=== PATIENT | male | born 1975 | race Caucasian/White ===

== ENCOUNTER 2020-07-19 15:56 | Emergency (ER) | payer BC ==
[2020-07-19 16:13] VITALS: BP 115/83; PULSE 105; TEMP 98.6; BMI 47.0
--- OUTSIDE RECORDS SUMMARY | 2020-07-19 16:26 | XMS ---
:1975 Author Organization [facility] Support Name Relationship Address Phone UE Unavailable Unavailable Unavailable Re-disclosure Warning The records that you are about to access may contain information from federally- assisted alcohol or drug abuse programs. If such information is present, then the following federally mandated warning applies: This information has been disclosed to you from records protected by federal confidentiality rules (42 CFR part 2). The federal rules prohibit you from making any further disclosure of this information unless further disclosure is expressly permitted by the written consent of the person to whom it pertains or as otherwise permitted by 42 CFR part 2. A general authorization for the release of medical or other information is NOT sufficient for this purpose. The Federal rules restrict any use of the information to criminally investigate or prosecute any alcohol or drug abuse patient.The records that you are about to access may contain highly sensitive health information, the redisclosure of which is protected by Article 27-F of the [facility] Public Health law. If you continue you may haveaccess to information: Regarding HIV / AIDS; Provided by facilities licensed or operated by the [facility] Office of Mental Health; or Provided by the [facility] Office for People With Developmental Disabilities. If such information is present, then the following [facility] mandated warning applies: This information has been disclosed to you from confidential records which are protected by state law. State law prohibits you from making any further disclosure of this information without the specific written consent of the person to whom it pertains, or as otherwise permitted by law. Any unauthorized further disclosure in violation of state law may result in a fine or alf sentence or both. A general authorization for the release of medical or other information is NOT sufficient authorization for further disclosure. Insurance Providers Payer name Policy type / Policy ID Covered Covered republican's Policy Plan Coverage type republican ID relationship to Rosales Information rosales PPO [id number] SP [id number] Results ID Date Data Source [id number] 02/11/2020 11:48:00 AM EDT [facility] Name Value Range Interpretation Code Description Data Anh rce(s) Supporting Document(s ) SARS-COV-2 [facility] QL ACE+PROBE This lab was ordered by [facility] and reported by [facility]. Procedure
--- NOTE | 2020-07-19 17:04 | PDOC ---
History of Present Illness - General Chief Complaint: Chest Pain Stated Complaint: CHEST PAIN Time Seen by Provider: 07/19/20 16:52 History Source: Patient Exam Limitations: No Limitations Past History - Travel History Traveled outside of the country in the last 30 days: No Close contact w/someone who was outside of country & ill: No - Medical History Allergies/Adverse Reactions: Allergies Allergy/AdvReac Type Severity Reaction Status Date / Time No Known Allergies Allergy Verified 07/19/20 16:09 - Psycho-Social/Smoking History Smoking History: Never smoked Have you smoked in the past 12 months: No - Substance Abuse Hx (Audit-C & DAST Scrn) How often the patient has a drink containing alcohol: Never Score: In Men: 4 or > Positive; In Women: 3 or > Positive: 0 Screen Result (Pos requires Nsg. Audit-10AR): Negative In the last yr the pt used illegal drug/Rx for NonMed reason: No Score: Yes response is considered Positive: 0 Screen Result (Positive result requires Nsg. DAST-10): Negative Review of Systems - Review of Systems Able to Perform ROS?: Yes Comments:: 07/19/20 18:07 CONSTITUTIONAL: Absent: fever, chills, diaphoresis, generalized weakness, malaise, loss of appetite HEENT: Absent: rhinorrhea, nasal congestion, throat pain, throat swelling, difficulty swallowing, mouth swelling, ear pain, eye pain, visual Changes CARDIOVASCULAR: Present: chest pain Absent: loss of consciousness, palpitations, irregular heart rate, peripheral edema RESPIRATORY: Present: sob Absent: cough, shortness of breath, dyspnea with exertion, orthopnea, wheezing, stridor, hemoptysis GASTROINTESTINAL: Absent: abdominal pain, abdominal distension, nausea, vomiting, diarrhea, constipation, melena, hematochezia GENITOURINARY: Absent: dysuria, frequency, urgency, hesitancy, hematuria, flank pain, genital pain MUSCULOSKELETAL: Absent: myalgia, arthralgia, joint swelling SKIN: Absent: rash, itching, pallor HEMATOLOGIC/IMMUNOLOGIC: Absent: easy bleeding, easy bruising, lymphadenopathy, frequent infections ENDOCRINE: Absent: unexplained weight gain, unexplained weight loss, heat intolerance, cold intolerance NEUROLOGIC: Absent: headache, focal weakness or paresthesias, dizziness, unsteady gait, seizure, mental status changes, bladder or bowel incontinence PSYCHIATRIC: Absent: anxiety, depression, suicidal or homicidal ideation, hallucinations. Is the patient limited Luxembourger proficient: No *Physical Exam - Vital Signs Last Vital Signs Temp Pulse Resp BP Pulse Ox 98.6 F 105 H 22 H 115/83 100 07/19/20 16:09 07/19/20 16:09 07/19/20 16:09 07/19/20 16:09 07/19/20 16:09 - Physical Exam 07/19/20 18:08 GENERAL: Well developed, well nourished. Awake and alert. No acute distress. HEENT: Normocephalic, atraumatic. PERRLA, EOMI. No conjunctival pallor. Sclera are non- icteric. Moist mucous membranes. NECK: Supple. Full ROM. No JVD. No lymphadenopathy. CARDIOVASCULAR: Regular rate and rhythm. No murmurs, rubs, or gallops. Distal pulses are 2+ and symmetric. PULMONARY: No evidence of respiratory distress. ABDOMINAL: Soft. Non-tender. Non-distended. No rebound or guarding. No organomegaly. Normoactive bowel sounds. MUSCULOSKELETAL Normal range of motion at all joints. No bony deformities or tenderness. No CVA tenderness. EXTREMITIES: No cyanosis. No clubbing. No edema. No calf tenderness. SKIN: Warm and dry. Normal capillary refill. No rashes. No jaundice. NEUROLOGICAL: Alert, awake, appropriate. Cranial nerves 2-12 intact. No deficits to light touch and temperature in face, upper extremities and lower extremities. No motor deficits in the in face, upper extremities and lower extremities. Normoreflexic in the upper and lower extremities. Normal speech. Toes are down-going bilaterally. Gait is normal without ataxia. PSYCHIATRIC: Cooperative. Good eye contact. Appropriate mood and affect. Medical Decision Making - Medical Decision Making 07/19/20 17:25 Patient is a 45-year-old male past medical history of depression, suicide attempt, hypertension, presents to the ER today with difficulty breathing and chest pain. He states he had COVID back in December and since then has been having some residual symptoms. He said the chest pain was worse so he went to urgent care today for evaluation. He was told to come to the ER for admission and serial troponins. A/P: Chest pain Patient reports difficulty breathing and increasing chest pain with movement., Patient does have history of COVID Per lab work and history done in urgent care they told him his heart score was a 4. Patient did not understand that he needed to stay for admission. Patient becomes very anxious and panicked when I tell him he should stay. He states that he needs to leave to address his house. Patient states that needs to go home and close his windows and secured his house and that he cannot stay at this time. He is free from distracting injury and sober. He states he will come back in about half an hour after he secures his house. He understands that he is leaving AGAINST MEDICAL ADVICE and could have worsening chest pain, difficulty breathing or worsening events related to his h eart. Patient signed the AMA forms. Discharge - Discharge Information Problems reviewed: Yes Clinical Impression/Diagnosis: SOB (shortness of breath) Disposition: AGAINST MEDICAL ADVICE - Follow up/Referral - Patient Discharge Instructions - Post Discharge Activity
--- NOTE | 2020-07-20 14:04 | EKG ---
Test Reason : Blood Pressure : / mmHG Vent. Rate : 099 BPM Atrial Rate : 099 BPM P-R Int : 150 ms QRS Dur : 090 ms QT Int : 338 ms P-R-T Axes : 019 009 031 degrees QTc Int : 433 ms NORMAL SINUS RHYTHM NORMAL ECG NO PREVIOUS ECGS AVAILABLE Confirmed by PHAM MELENDEZ MD ([id number]) on 07/20/2020 2:04:28 PM Referred By: Confirmed By:PHAM MELENDEZ MD
== END 2020-07-19 18:00 | disposition left against medical advice (07) ==
LOC: JER 15:56
DX: R06.02 Shortness of breath (principal)
CPT/HCPCS: 93005; 93010; 99285-25

== ENCOUNTER 2020-07-19 19:01 | Inpatient (IN) | payer BC ==
--- OUTSIDE RECORDS SUMMARY | 2020-07-19 19:21 | XMS ---
:1975 Author Organization [facility] Support Name Relationship Address Phone UE Unavailable [...] is protected by Article 27-F of the [facility] Public Health law. If you continue you may haveaccess to information: Regarding HIV / AIDS; Provided by facilities licensed or operated by the [facility] Office of Mental Health; or Provided by the [facility] Office for People With Developmental Disabilities. If such information is present, then the following [facility] mandated warning applies: This information has been [...] law may result in a fine or senior living sentence or both. A general authorization for the release of medical or other information is NOT sufficient authorization for further disclosure. Insurance Providers Payer name Policy type / Policy ID Covered Covered libertarian's Policy Plan Coverage type libertarian ID relationship to Rosales Information rosales PPO [id number] SP [id number] Results ID Date Data Source [id number] 02/11/2020 11:48:00 AM EDT [facility] Name Value Range Interpretation Code Description Data Anh rce(s) Supporting Document(s ) SARS-COV-2 [facility] QL ACE+PROBE This lab was ordered by [facility] and reported by [facility]. Procedure
--- NOTE | 2020-07-19 19:25 | PDOC ---
History of Present Illness - General Stated Complaint: CHEST PAINS History Source: Patient Exam Limitations: No Limitations Past History - Medical History Allergies/Adverse Reactions: Allergies Allergy/AdvReac Type Severity Reaction Status Date / Time No Known Allergies Allergy Verified 07/19/20 19:17 Home Medications: Ambulatory Orders Quetiapine Fumarate [Seroquel -] 50 mg PO BID 07/20/20 Venlafaxine HCl [Effexor -] 100 mg PO BID 07/20/20 Vortioxetine Hydrobromide [Trintellix] 20 mg PO DAILY 07/20/20 COPD: No - Psycho-Social/Smoking History Smoking History: Current every day smoker Have you smoked in the past 12 months: No Number of Cigarettes Smoked Daily: 20 Information on smoking cessation initiated: Yes - Substance Abuse Hx (Audit-C & DAST Scrn) How often the patient has a drink containing alcohol: Never Score: In Men: 4 or > Positive; In Women: 3 or > Positive: 0 Screen Result (Pos requires Nsg. Audit-10AR): Negative In the last yr the pt used illegal drug/Rx for NonMed reason: No Score: Yes response is considered Positive: 0 Screen Result (Positive result requires Nsg. DAST-10): Negative Review of Systems - Review of Systems Able to Perform ROS?: Yes Comments:: 07/19/20 21:29 CONSTITUTIONAL: Absent: fever, chills, diaphoresis, generalized weakness, malaise, loss of appetite HEENT: Absent: rhinorrhea, nasal congestion, throat pain, throat swelling, difficulty swallowing, mouth swelling, ear pain, eye pain, visual Changes CARDIOVASCULAR: Present: Chest pain Absent: loss of consciousness, palpitations, irregular heart rate, peripheral edema RESPIRATORY: Present: Shortness of breath Absent: cough, dyspnea with exertion, orthopnea, wheezing, stridor, hemoptysis GASTROINTESTINAL: Absent: abdominal pain, abdominal distension, nausea, vomiting, diarrhea, constipation, melena, hematochezia GENITOURINARY: Absent: dysuria, frequency, urgency, hesitancy, hematuria, flank pain, genital pain MUSCULOSKELETAL: Absent: myalgia, arthralgia, joint swelling SKIN: Absent: rash, itching, pallor HEMATOLOGIC/IMMUNOLOGIC: Absent: easy bleeding, easy bruising, lymphadenopathy, frequent infections ENDOCRINE: Absent: unexplained weight gain, unexplained weight loss, heat intolerance, cold intolerance NEUROLOGIC: Absent: headache, focal weakness or paresthesias, dizziness, unsteady gait, seizure, mental status changes, bladder or bowel incontinence PSYCHIATRIC: Absent: anxiety, depression, suicidal or homicidal ideation, hallucinations. Is the patient limited Greek proficient: No *Physical Exam - Vital Signs Last Vital Signs Temp Pulse Resp BP Pulse Ox 98.4 F 110 H 24 H 119/67 94 L 07/19/20 19:15 07/19/20 19:15 07/19/20 19:15 07/19/20 19:15 07/19/20 19:15 - Physical Exam 07/19/20 21:52 GENERAL: Well developed,Morbidly obese. Awake and alert. No acute distress. HEENT: Normocephalic, atraumatic. PERRLA, EOMI. No conjunctival pallor. Sclera are non- icteric. Moist mucous membranes. Oropharynx is clear. NECK: Supple. Full ROM. No JVD. Carotid pulses 2+ and symmetric, without bruits. No thyromegaly. No lymphadenopathy. CARDIOVASCULAR: Regular rate and rhythm. No murmurs, rubs, or gallops. Distal pulses are 2+ and symmetric. PULMONARY: Short of breath conversationally. Lungs With diminished sounds to the bases.. No wheezing, rales or rhonchi. ABDOMINAL: Soft. Non-tender. Non-distended. No rebound or guarding. No organomegaly. Normoactive bowel sounds. MUSCULOSKELETAL Normal range of motion at all joints. No bony deformities or tenderness. No CVA tenderness. EXTREMITIES: No cyanosis. No clubbing. No edema. No calf tenderness. SKIN: Warm and dry. Normal capillary refill. No rashes. No jaundice. NEUROLOGICAL: Alert, awake, appropriate. Cranial nerves 2-12 intact. No deficits to light touch and temperature in face, upper extremities and lower extremities. No motor deficits in the in face, upper extremities and lower extremities. Normoreflexic in the upper and lower extremities. Normal speech. Toes are down-going bilaterally. Gait is normal without ataxia. PSYCHIATRIC: Cooperative. Good eye contact. Appropriate mood and affect. Heart Score/ECG Review - History History: Moderately suspicious - Electrocardiogram EKG: Normal - Age Age: 45-65 - Risk Factors Risk Factors Heart Score: Yes Smoking History, Yes Hx Obesity Based on the list above the patient has:: 1-2 risk factors - Troponin Troponin: </= normal limit - Score Heart Score - Total: 3 ED Treatment Course - LABORATORY CBC & Chemistry Diagram: 07/19/20 20:22 07/19/20 20:22 Medical Decision Making - Medical Decision Making 07/19/20 21:21 Patient is a 45-year-old male past medical history of depression, suicide attempt (2012), hypertension, presents to the ER today with difficulty breathing and chest pain for the past three days. He states he had COVID back in December and since then has been having some residual symptoms. He notes that when he walks short distances he gets short of breath. His chest pain is made worse with deep breaths and movement. He said the chest pain was worse so he went to urgent care today for evaluation. He was told to come to the ER for admission and serial troponins. A/P: Chest pain On exam lungs sounds are diminished at the bases. Course lung sounds overall Minimal edema to the b/l ankles Heart RRR S1S2 present (-)m/r/g Pt is very anxious; visteral given Labs including trop, d-dimer, bnp ordered, EKG, CXR Tylenol for pain DDX: ACS, PE, new onset CHF, PNA, COVID Will re-evaluate 07/19/20 21:52 EKG: rate 104 BPM, sinus tach. Normal intervals and axis. No acute ST-T wave changes. Pending CT results Sign out given to Dr. Fernandez. Discharge - Discharge Information Problems reviewed: Yes Clinical Impression/Diagnosis: SOB (shortness of breath) Chest pain Qualifiers: Chest pain type: unspecified Qualified Code(s): R07.9 - Chest pain, unspecified - Follow up/Referral - Patient Discharge Instructions - Post Discharge Activity
[2020-07-19] MEDS ORDERED: ACETAMINOPHEN 1000 MG/100 ML VIAL (NON FORMULARY) IVPB ONE (19:58)
[2020-07-19] MEDS ORDERED: SODIUM CHLORIDE 1,000 ML IV STA (19:58)
[2020-07-19] MEDS ORDERED: hydrOXYzine PAMOATE 50 MG CAPSULE (FP) PO ONE (20:14)
[2020-07-19 20:57] LABS: BASO % 0.8 % (0-2.0); EOS % 3.2 % (0-4.5); HEMATOCRIT 47.5 % (35.4-49); HEMOGLOBIN 15.6 GM/dL (11.7-16.9); LYMPH % 21.3 % (8-40); MCHC 32.8 g/dl (32.0-35.9); MEAN CELL VOLUME 88.2 fl (80-96); MEAN PLT VOLUME 8.4 fl (7.5-11.1); MONO % 10.2 % (3.8-10.2); NEUT % 64.5 % (42.8-82.8); PLATELET COUNT 271 K/MM3 (134-434); RBC 5.38 M/mm3 (4.00-5.60); RDW 14.6 % (11.9-15.9)
[2020-07-19 21:06] LABS: PROTHROMBIN TIME (PATIENT) 11.8 SEC (9.7-13.0)
[2020-07-19] MEDS ORDERED: hydrOXYzine PAMOATE 50 MG CAPSULE (FP) ONE (21:08)
[2020-07-19] MEDS ORDERED: ACETAMINOPHEN INJECTION 100 ML IVPB ONE (21:08)
[2020-07-19 21:20] LABS: ALBUMIN 3.9 g/dl (3.4-5.0); ALK PHOS 89 U/L (45-117); ANION GAP 6 MMOL/L (8-16); BILIRUBIN,TOTAL 0.3 mg/dL (0.2-1); BLOOD UREA NITROGEN 24.9 mg/dL (7-18); CALCIUM 9.6 mg/dL (8.5-10.1); CHLORIDE 107 mmol/L (98-107); CO2 28 mmol/L (21-32); CREATININE 0.7 mg/dL (0.55-1.3); GLUCOSE,RANDOM 103 mg/dL (74-106); POTASSIUM 4.5 mmol/L (3.5-5.1); SGOT/AST 21 U/L (15-37); SGPT/ALT 35 U/L (13-61); SODIUM 140 mmol/L (136-145); TOT PROT 7.6 g/dl (6.4-8.2)
--- NOTE | 2020-07-19 22:09 | PDOC ---
*Physical Exam - Vital Signs Last Vital Signs Temp Pulse Resp BP Pulse Ox 98.4 F 110 H 24 H 119/67 94 L 07/19/20 19:15 07/19/20 19:15 07/19/20 19:15 07/19/20 19:15 07/19/20 19:15 ED Treatment Course - LABORATORY CBC & Chemistry Diagram: 07/19/20 20:22 07/19/20 20:22 - ADDITIONAL ORDERS Additional order review: Laboratory Results 07/19/20 07/19/20 07/19/20 20:22 20:22 20:22 PT with INR INR D-Dimer 296 Sodium 140 Potassium 4.5 Chloride 107 Carbon Dioxide 28 Anion Gap 6 L BUN 24.9 H Creatinine 0.7 Est GFR (CKD-EPI)AfAm 132.09 Est GFR (CKD-EPI)NonAf 113.97 Random Glucose 103 Calcium 9.6 Total Bilirubin 0.3 AST 21 ALT 35 Alkaline Phosphatase 89 Creatine Kinase 114 Troponin I < 0.02 B-Natriuretic Peptide 10.2 Total Protein 7.6 Albumin 3.9 07/19/20 20:22 PT with INR 11.80 INR 1.00 D-Dimer Sodium Potassium Chloride Carbon Dioxide Anion Gap BUN Creatinine Est GFR (CKD-EPI)AfAm Est GFR (CKD-EPI)NonAf Random Glucose Calcium Total Bilirubin AST ALT Alkaline Phosphatase Creatine Kinase Troponin I B-Natriuretic Peptide Total Protein Albumin 07/19/20 20:22 RBC 5.38 MCV 88.2 MCHC 32.8 RDW 14.6 MPV 8.4 Neutrophils % 64.5 Lymphocytes % 21.3 Monocytes % 10.2 Eosinophils % 3.2 Basophils % 0.8 - RADIOLOGY Radiograph Interpretation: Nixon Corbin MD wrote on Jul 20, 2020 at 02:50 AM: Referring Physician: RD MADDOX Patient Name: JARRELL MELENDREZ THIS IS A PRELIMINARY REPORT DATE OF SERVICE: 2020-07-20 00:31:49 IMAGES: 11 EXAM: CT ANGIOGRAM CHEST WITH CONTRAST AND 3D ANGIOGRAPHIC RECONSTRUCTIONS HISTORY: 45-year-old male tachypnea assess for pulmonary embolism and assess for pneumonia COMPARISON: None. TECHNIQUE: Following 150 mL IV contrast administration thin axial images were obtained through the chest for pulmonary artery evaluation by pulmonary embolism protocol with images transmitted to a remote workstation for 3-D post-processing included coronal and sagittal reformatted 3- D MIP images which were permanently stored in the patient medical record PACS. FINDINGS: Right middle lobe nonspecific 7 mm mass axial image 44 may be benign or malignant. No large central pulmonary artery embolism. Breathing motion artifact limits this exam. Evaluation of the segmental and subsegmental branches are limited by artifacts. No aortic aneurysm or dissection. Heart size within normal limits. Mild basilar atelectasis. No pleural effusion. No pneumothorax. Subcentimeter mediastinal and hilar lymph nodes. Mild hepatomegaly and steatosis with a nodular liver contour. Mild reflux of contrast into the hepatic veins. Mild gastroesophageal reflux in the lower esophagus. Diverticulosis. Mild degenerative disc disease. IMPRESSION: Right middle lobe nonspecific 7 mm mass may be benign or malignant. If clinically indicated follow-up outpatient CT chest may be needed. Fleischner Society guidelines for follow-up and management of pulmonary nodules: Nodule size = 6-8 mm. In a low-risk patient, initial follow-up CT at 6-12 months then at 18-24 months if no change. In a high-risk patient, initial follow-up CT at 3-6 months then at 9-12 months and 24 months if no change. Low risk patients include individuals with minimal or absent history of smoking and other known risk factors. High risk patients include individuals with a history of smoking or other known risk factors. No large central pulmonary artery embolism. Mild basilar atelectasis. Subcentimeter mediastinal and hilar lymph nodes. Mild hepatomegaly and steatosis with a nodular liver contour. Mild reflux of contrast into the hepatic veins. Mild gastroesophageal reflux in the lower esophagus. Diverticulosis. - Medications Given in the ED: ED Medications Discontinued Medications Generic Name Dose Route Start Last Admin Trade Name Freq PRN Reason Stop Dose Admin Acetaminophen 1,000 mg 07/19/20 19:58 07/19/20 21:14 Ofirmev Injection - IVPB 07/19/20 19:59 1,000 mg ONCE ONE Administration Hydroxyzine Pamoate 50 mg 07/19/20 20:14 07/19/20 21:14 Vistaril - PO 07/19/20 20:15 50 mg ONCE ONE Administration Medical Decision Making - Medical Decision Making 07/19/20 22:08 Signed out to me by Tammy Palmer. Has had chest pain with tachypnea last few days, went to urgent care, referred to [facility] ED. Formerly covid-19+. Today AMA from ED to close a window in his house, now returned for further cardiac evaluation. Labs unremarkable, tachycardic but D-dimer negative. ECG sinus tachcyardia with HR 104, QTc 92, no CINDI/D or TWI. IVF withheld, possible overload vs covid-19. Plans: [] CT chest non-con [] tele/obs admit 07/20/20 01:48 Patient reports a few days of SOB to the point of being unable to walk far. Also says he has been depressed last few months due to his leaving him, seeing psychiatrist, cutting wrists, severe weight gain. Appears grossly out of breath when speaking, appears much sicker than VS suggest. Getting CTA for evaluation of PE despite low D-dimer out of concern for SOB. 07/20/20 02:58 CTA read no central PE, but limited by motion artifact. 7mm nodule RML. ER read appears like possible covid-19, started on ABx. Admitting to tele for suspected covid-19 and chest pain with hypoxia. 07/20/20 03:54 Discussed case with admitting team, good for admit to TELE under Dr. Pena. Discharge - Discharge Information Problems reviewed: Yes Clinical Impression/Diagnosis: SOB (shortness of breath) Chest pain Qualifiers: Chest pain type: unspecified Qualified Code(s): R07.9 - Chest pain, unspecified - Admission Yes - Follow up/Referral - Patient Discharge Instructions - Post Discharge Activity
--- NOTE | 2020-07-20 01:49 | PDOC ---
Attending Attestation - Resident Resident Name: Andriy Durand - ED Attending Attestation I have performed the following: I have examined & evaluated the patient, The case was reviewed & discussed with the resident, I agree w/resident's findings & plan, Exceptions are as noted - HPI HPI: 07/20/20 01:46 45 yo male p/w shortness of breath head ncat neck supple lungs no wheezing cvs [id number] abdomen no rebound skin warm and dry extremities mild swelling left ankle> right ankle neuro axox3,ambulatory - Physicial Exam PE: 07/20/20 18:03 head ncat neck supple lungs no wheezing cvs [id number] abdomen no rebound skin warm and dry extremities mild swelling left ankle> right ankle neuro axox3,ambulatory 07/20/20 18:03 - Medical Decision Making 07/20/20 01:49 cta chest/labs pending 07/20/20 18:03 Discharge - Discharge Information Problems reviewed: Yes Clinical Impression/Diagnosis: SOB (shortness of breath) Chest pain Qualifiers: Chest pain type: unspecified Qualified Code(s): R07.9 - Chest pain, unspecified - Follow up/Referral - Patient Discharge Instructions - Post Discharge Activity
[2020-07-20] MEDS ORDERED: AZITHROMYCIN IVPB 500 MG in DEXTROSE 5%-WATER - 250 ML IVPB ONE (02:04)
[2020-07-20] MEDS ORDERED: CEFTRIAXONE 1 GM in DEXTROSE 5%-WATER - 50 ML IVPB ONE (02:05)
[2020-07-20] MEDS ORDERED: CEFTRIAXONE 1 GM/50 ML BAG ONE (02:20)
--- NOTE | 2020-07-20 03:03 | PDOC ---
*Physical Exam - Vital Signs Last Vital Signs Temp Pulse Resp BP Pulse Ox 98.1 F 101 H 20 95/57 L 94 L 07/20/20 00:43 07/20/20 00:43 07/20/20 00:43 07/20/20 00:43 07/20/20 00:43 ED Treatment Course - LABORATORY CBC & Chemistry Diagram: 07/19/20 20:22 07/19/20 20:22 - ADDITIONAL ORDERS Additional order review: Laboratory Results 07/19/20 07/19/20 07/19/20 22:15 20:22 20:22 PT with INR INR D-Dimer Sodium 140 Potassium 4.5 Chloride 107 Carbon Dioxide 28 Anion Gap 6 L BUN 24.9 H Creatinine 0.7 Est GFR (CKD-EPI)AfAm 132.09 Est GFR (CKD-EPI)NonAf 113.97 Random Glucose 103 Calcium 9.6 Total Bilirubin 0.3 AST 21 ALT 35 Alkaline Phosphatase 89 Creatine Kinase 94 114 Troponin I < 0.02 < 0.02 B-Natriuretic Peptide 10.2 Total Protein 7.6 Albumin 3.9 07/19/20 07/19/20 20:22 20:22 PT with INR 11.80 INR 1.00 D-Dimer 296 Sodium Potassium Chloride Carbon Dioxide Anion Gap BUN Creatinine Est GFR (CKD-EPI)AfAm Est GFR (CKD-EPI)NonAf Random Glucose Calcium Total Bilirubin AST ALT Alkaline Phosphatase Creatine Kinase Troponin I B-Natriuretic Peptide Total Protein Albumin 07/19/20 20:22 RBC 5.38 MCV 88.2 MCHC 32.8 RDW 14.6 MPV 8.4 Neutrophils % 64.5 Lymphocytes % 21.3 Monocytes % 10.2 Eosinophils % 3.2 Basophils % 0.8 - Medications Given in the ED: ED Medications Discontinued Medications Generic Name Dose Route Start Last Admin Trade Name Freq PRN Reason Stop Dose Admin Acetaminophen 1,000 mg 07/19/20 19:58 07/19/20 21:14 Ofirmev Injection - IVPB 07/19/20 19:59 1,000 mg ONCE ONE Administration Hydroxyzine Pamoate 50 mg 07/19/20 20:14 07/19/20 21:14 Vistaril - PO 07/19/20 20:15 50 mg ONCE ONE Administration Sodium Chloride 1,000 mls @ 1,000 mls/hr 07/19/20 19:58 07/19/20 22:23 Normal Saline - IV 07/19/20 20:57 1,000 mls/hr ASDIR STA Administration Ceftriaxone Sodium 1 gm/ 50 mls @ 100 mls/hr 07/20/20 02:05 07/20/20 02:21 Dextrose IVPB 07/20/20 02:34 100 mls/hr ONCE ONE Administration Medical Decision Making - Medical Decision Making 07/20/20 03:02 Patient Name: JARRELL MELENDREZ THIS IS A PRELIMINARY REPORT DATE OF SERVICE: 2020-07-20 00:31:49 IMAGES: 11 EXAM: CT ANGIOGRAM CHEST WITH CONTRAST AND 3D ANGIOGRAPHIC RECONSTRUCTIONS HISTORY: 45-year-old male tachypnea assess for pulmonary embolism and assess for pneumonia COMPARISON: None. TECHNIQUE: Following 150 mL IV contrast administration thin axial images were obtained through the chest for pulmonary artery evaluation by pulmonary embolism protocol with images transmitted to a remote workstation for 3-D post-processing included coronal and sagittal reformatted 3- D MIP images which were permanently stored in the patient medical record PACS. FINDINGS: Right middle lobe nonspecific 7 mm mass axial image 44 may be benign or malignant. No large central pulmonary artery embolism. Breathing motion artifact limits this exam. Evaluation of the segmental and subsegmental branches are limited by artifacts. No aortic aneurysm or dissection. Heart size within normal limits. Mild basilar atelectasis. No pleural effusion. No pneumothorax. Subcentimeter mediastinal and hilar lymph nodes. Mild hepatomegaly and steatosis with a nodular liver contour. Mild reflux of contrast into the hepatic veins. Mild gastroesophageal reflux in the lower esophagus. Diverticulosis. Mild degenerative disc disease. IMPRESSION: Right middle lobe nonspecific 7 mm mass may be benign or malignant. If clinically indicated follow-up outpatient CT chest may be needed. Fleischner Society guidelines for follow-up and management of pulmonary nodules: Nodule size = 6-8 mm. In a low-risk patient, initial follow-up CT at 6-12 months then at 18-24 months if no change. In a high-risk patient, initial follow-up CT at 3-6 months then at 9-12 months and 24 months if no change. Low risk patients include individuals with minimal or absent history of smoking and other known risk factors. High risk patients include individuals with a history of smoking or other known risk factors. No large central pulmonary artery embolism. Mild basilar atelectasis. Subcentimeter mediastinal and hilar lymph nodes. Mild hepatomegaly and steatosis with a nodular liver contour. Mild reflux of contrast into the hepatic veins. Mild gastroesophageal reflux in the lower esophagus. Diverticulosis Discharge - Discharge Information Problems reviewed: Yes Clinical Impression/Diagnosis: SOB (shortness of breath) Chest pain Qualifiers: Chest pain type: unspecified Qualified Code(s): R07.9 - Chest pain, unspecified - Follow up/Referral - Patient Discharge Instructions - Post Discharge Activity
--- NOTE | 2020-07-20 03:12 | PN ---
Teaching Attending Note Name of Resident: Scott Dye ATTENDING PHYSICIAN STATEMENT I saw and evaluated the patient. I reviewed the resident's note and discussed the case with the resident. I agree with the resident's findings and plan as documented. SUBJECTIVE: Patient is a 45 year old man with a PMH of Depression, Suicide attempt, Hyp ertension and ?COVID-19 infection (December 2019) who presents to the ER today with difficulty breathing and chest pain. States he has been having some residual symptoms since his COVID-19 infection. He said the chest pain was worse so he went to Urgent care today for evaluation. He was told to come to the ER for admission and serial troponins. He signed out AMA earlier this evening to go close the windows in his house. Patient denies abdominal pain, headache, palpitations, dizziness, fever, chills, nausea, vomiting, diarrhea, constipation, dysuria, frequency, urgency, melena, hematochezia or hematuria. Denies alcohol, tobacco or illicit drug use. No sick contacts or recent travels. Family history is unremarkable. OBJECTIVE: Alert Vital Signs Period Temp Pulse Resp BP Sys/Goldstein Pulse Ox Last 24 Hr 98.1 F-98.4 F 101-110 20-24 95-119/57-67 94-94 HEENT: No Jaundice, eye redness or discharge, PERRLA, EOMI. Normocephalic, atraumatic. External ears are normal and hearing is grossly intact. No nasal discharge. Neck: Supple, nontender. No palpable adenopathy or thyromegaly. No JVD Chest: Good effort. Clear to auscultation and percussion. Heart: Regular. No S3, rub or murmur Abdomen: Not distended, soft, nontender and no HSM. No rebound or guarding. Normal bowel sounds. Ext: Peripheral pulses intact. No leg edema. Skin: Warm and dry. No petechiae, rash or ecchymosis. Neuro: Alert. Oriented x3. CN 2-12 grossly intact. Sensation grossly intact in all four extremities and DTR are symmetric. Psych: Appropriate mood and affect. Good insight. Abnormal Lab Results 07/19/20 07/19/20 20:22 20:22 WBC 12.0 H Anion Gap 6 L BUN 24.9 H Current Medications Generic Name Dose Route Start Last Admin Trade Name Freq PRN Reason Stop Dose Admin Ascorbic Acid 500 mg 07/20/20 10:00 Vitamin C - PO BID [facility] Cholecalciferol 400 unit 07/20/20 10:00 Vitamin D3 - PO DAILY [facility] Enoxaparin Sodium 40 mg 07/20/20 10:00 Lovenox - SQ DAILY [facility] Famotidine 20 mg 07/20/20 10:00 Pepcid - PO BID [facility] Pantoprazole Sodium 40 mg 07/20/20 10:00 Protonix - PO DAILY [facility] Zinc Sulfate 220 mg 07/20/20 10:00 Orazinc - PO BID [facility] ASSESSMENT AND PLAN: 1. Chest pain/Rulr out COVID-19 infection - May signal sequelae of COVID-19 pneumonitis or GERD, but will rule out ACS. CTA chest/thorax report - "No pulmonary embolism noted. Right middle lobe nonspecific 7 mm mass may be benign or malignant. Mild basilar atelectasis. Subcentimeter mediastinal and hilar lymph nodes. Mild hepatomegaly and steatosis with a nodular liver contour. Mild reflux of contrast into the hepatic veins. Mild gastroesophageal reflux in the lower esophagus. Diverticulosis." EKG shows sinus tachycardia at 104/minute and QTc 444 with no significant acute ischemic ST-T wave changes. No old EKG available for comparison. Initial troponin is negative. Viral testing for COVID-19 ordered and patient placed on airborne, droplet and contact isolation. Started on supplemental oxygen via nasal cannula. Will admit to telemetry, get URINALYSIS, trend troponin, repeat EKG, get ECHO, TSH, urine toxicology screen, fasting lipids, treat with IV Protonix 40 mg qd and implement GERD/aspiration prevention measures. Consult Cardiology and also Pulmonary for further workup of ?lung mass. Will treat patient with Zinc sulfate, Pepcid, Vitamin D, Vitamin C, IV Ceftriaxone and Azithromycin, Tylenol PRN and consult ID. Will continue comprehensive care for all of patients comorbid conditions including Psychiatry evaluation for Depression. 2. Obesity Counseled on the risks associated with obesity. Will provide patient all the necessary assistance, counseling and positive reinforcement to facilitate weight loss. Consult onsite health coach. 3. Hypertension Will restart suitable outpatient antihypertensive drugs when clinically appropriate. Subsequently, will revise regimen to ensure [id number] excellent BP control. Patient counseled on the injurious effects of uncontrolled hypertension. Nonpharmacologic measures to control hypertension like weight loss, salt restriction and exercise stressed. Importance of adherence to treatment regimen and attainment of normotension emphasized. 4. DVT prophylaxis - Lovenox 40 mg SQ q 12 hours. 5. Advance directives - Full code
[2020-07-20] MEDS ORDERED: AZITHROMYCIN IVPB 500 MG/250 ML BAG IVPB ONE ×3 (03:14→14:00)
--- NOTE | 2020-07-20 03:25 | HP ---
CHIEF COMPLAINT: Pleuritic chest pain PCP: Dr. Rodriguez at [facility] HISTORY OF PRESENT ILLNESS: Mr. Rdz is a 45 Tuval[place] speaking male with a past medical history of depression and anxiety. The patient reported 5 days of left sided chest pain that radiates to his left flank and describes it as a sharp pain upon inhalation. The patient denies chest pain associated with exertion. The patient had gone to Urgent care for his left sided chest pain and was told to arrive to the emergency department for acs rule out. On interview the patient appears out of breath while speaking on 2 L of O2 nc. The patient is periodically clutching the left side of his chest each time he takes a deep breath or makes sudden movements. The patient endorses he is capable of sleeping flat and does not feel like he has a cough however he endorses slight wheezing. The patient notes that he has had similar symptoms to when he was sick in december. He tested negative for coronavirus in december by his psych/pcp but was told to quarentine for 3 weeks and his symptoms resolved. The patient denies acute weight gain or swelling in legs. Patient has been afebrile however he has woken up this morning with moderate diaphoresis. In the emergency department the patient worked up acs vs PE trop neg, ddimer neg, chest cta - no large central PE - lots of motion artifacts Recent Travel: Last trip was to [facility] in september PAST MEDICAL HISTORY: depression and anxiety PAST SURGICAL HISTORY: Hernia repair several years ago Social History: Smoking: denies Alcohol: denies Drugs: denies Allergies No Known Allergies Allergy (Verified 07/19/20 19:17) HOME MEDICATIONS: REVIEW OF SYSTEMS CONSTITUTIONAL: Absent: fever, chills, diaphoresis, generalized weakness, malaise, loss of appetite, weight change HEENT: Absent: rhinorrhea, nasal congestion, throat pain, throat swelling, difficulty swallowing, mouth swelling, ear pain, eye pain, visual changes CARDIOVASCULAR: Absent: chest pain, syncope, palpitations, irregular heart rate, lightheadedness, peripheral edema RESPIRATORY: SHortness of breath GASTROINTESTINAL: Absent: abdominal pain, abdominal distension, nausea, vomiting, diarrhea, constipation, melena, hematochezia PHYSICAL EXAMINATION Vital Signs - 24 hr 07/19/20 07/20/20 19:15 00:43 Temperature 98.4 F 98.1 F Pulse Rate 110 H Pulse Rate [ 101 H Right Radial] Respiratory 24 H 20 Rate Blood Pressure 119/67 Blood Pressure 95/57 L [Left Arm] O2 Sat by Pulse 94 L 94 L Oximetry (%) GENERAL: Awake, alert, and fully oriented, in no acute distress. HEAD: Normal with no signs of trauma. LUNGS:Wheezing heard in left lower base, poor inspiratory effort, pleuritic pain HEART: Regular rate and rhythm, normal S1 and S2 without murmur, rub or gallop. ABDOMEN: Soft, nontender, not distended, normoactive bowel sounds, no guarding, no rebound, no masses. No hepatomegaly or splenomegaly. LOWER EXTREMITIES: 2+ pulses, warm, well-perfused. No calf tenderness. No peripheral edema. Laboratory Results - last 24 hr 07/19/20 07/19/20 07/19/20 20:22 20:22 20:22 WBC 12.0 H RBC 5.38 Hgb 15.6 Hct 47.5 MCV 88.2 MCH 29.0 MCHC 32.8 RDW 14.6 Plt Count 271 MPV 8.4 Absolute Neuts (auto) 7.8 Neutrophils % 64.5 Lymphocytes % 21.3 Monocytes % 10.2 Eosinophils % 3.2 Basophils % 0.8 Nucleated RBC % 0 PT with INR 11.80 INR 1.00 D-Dimer 296 Sodium Potassium Chloride Carbon Dioxide Anion Gap BUN Creatinine Est GFR (CKD-EPI)AfAm Est GFR (CKD-EPI)NonAf Random Glucose Calcium Total Bilirubin AST ALT Alkaline Phosphatase Creatine Kinase Troponin I B-Natriuretic Peptide Total Protein Albumin 07/19/20 07/19/20 07/19/20 20:22 20:22 22:15 WBC RBC Hgb Hct MCV MCH MCHC RDW Plt Count MPV Absolute Neuts (auto) Neutrophils % Lymphocytes % Monocytes % Eosinophils % Basophils % Nucleated RBC % PT with INR INR D-Dimer Sodium 140 Potassium 4.5 Chloride 107 Carbon Dioxide 28 Anion Gap 6 L BUN 24.9 H Creatinine 0.7 Est GFR (CKD-EPI)AfAm 132.09 Est GFR (CKD-EPI)NonAf 113.97 Random Glucose 103 Calcium 9.6 Total Bilirubin 0.3 AST 21 ALT 35 Alkaline Phosphatase 89 Creatine Kinase 114 94 Troponin I < 0.02 < 0.02 B-Natriuretic Peptide 10.2 Total Protein 7.6 Albumin 3.9 ASSESSMENT/PLAN: Mr. Rdz is a 45 Tuval[place] speaking male with a past medical history of depression and anxiety reporting to the ED for L sided chest pain and shortness of breath. #COVID r/o - Infectious disease will be consulted for initial ABX treatment regimen guiding - PT had possible covid in December and needs to be verified with the PCP that he has seen - The patient will be initially treated with a azythromycin and a ceftriaxone - Consider starting ceftriaxone tomorrow seeing the patient had received ceftriaxone at 2:20 and azythromax at 3:15 - 2 L of nasal canula will be administered seeing that the patient is saturating at 94% on 2L of NC - Consultation for pulmonology - Dr. Alin Bruce - Isolation precautions - Chest CT shows R lobe nonespecific 7mm Mass axial image may be benign or malignant. - Ordering inflammatory markers (ferritin and ESR) - Consult infectious disease - COVID antibody testing - Zinc 220 BID, Pepcid 20 BID, Vit D3 400 QD, Vit C 500 BID - 40mg PO Protonix at 10 am #Possible Acute Coronary Syndrome - likely secondary to body habitus/obeisity - Patient is morbidly obese - Admit to telemetry - Follow up 3rd troponin to rule out ACS - EKG negative - monitor for acute cardiac events - A1C to stratify risk - LIPID PANEL to evaluate the triglycerides, LDL, HDL, and total cholesterol - Consultation for cardiology- Dr. Josh Ruano #FEN - Gentle fluid hydration of normal saline - sodium controlled diet #DVT ppx - Lovenox SQ Family Medical History Family History: As Documented Visit type - Emergency Visit Emergency Visit: Yes ED Registration Date: 07/19/20 Care time: The patient presented to the Emergency Department on the above date and was hospitalized for further evaluation of their emergent condition. - New Patient This patient is new to me today: Yes Date on this admission: 07/21/20 - Critical Care Critical Care patient: No ATTENDING PHYSICIAN STATEMENT I saw and evaluated the patient. I reviewed the resident's note and discussed the case with the resident. I agree with the resident's findings and plan as documented. SUBJECTIVE: OBJECTIVE: ASSESSMENT AND PLAN:
--- OUTSIDE RECORDS SUMMARY | 2020-07-20 04:11 | XMS ---
:1975 Author [facility] Support Name Relationship Address Phone UE Unavailable Unavailable Unavailable UE Unavailable Unavailable Unavailable Re-disclosure Warning The [...] is protected by Article 27-F of the [facility] Public Health law. If you continue you may haveaccess to information: Regarding HIV / AIDS; Provided by facilities licensed or operated by the [facility] Office of Mental Health; or Provided by the [facility] Office for People With Developmental Disabilities. If such information is present, then the following [facility] mandated warning applies: This information has been [...] law may result in a fine or fdc sentence or both. A general authorization for the release of medical or other information is NOT sufficient authorization for further disclosure. Insurance Providers Payer name Policy type / Policy ID Covered Covered republican's Policy Plan Coverage type republican ID relationship to [place] Information rosales BC PPO [id number] SP [id number] Results ID Date Data Source [id number] 02/11/2020 11:48:00 AM EDT [facility] Name Value Range Interpretation Code Description Data Anh rce(s) Supporting Document(s ) SARS-COV-2 [facility] QL ACE+PROBE This lab was ordered by [facility] and reported by [facility]. Procedure
[2020-07-20] MEDS ORDERED: PANTOPRAZOLE 40 MG TABLET PO SCH (07:30)
[2020-07-20] MEDS ORDERED: PANTOPRAZOLE 40 MG TABLET ONE (08:41)
[2020-07-20] MEDS ORDERED: PANTOPRAZOLE SODIUM 40 MG/100 ML BAG IVPB ONE (08:41)
[2020-07-20] MEDS ORDERED: ZINC SULFATE 220 MG CAPSULE (FP) ONE (08:41)
[2020-07-20] MEDS ORDERED: FAMOTIDINE 20 MG TABLET ONE (08:41)
[2020-07-20] MEDS ORDERED: ASCORBIC ACID 500 MG TABLET (FP) ONE (08:41)
[2020-07-20] MEDS ORDERED: PT OWN MED DRAWER 7, Y5N ONE ×2 (08:42→22:01)
[2020-07-20] MEDS ORDERED: ENOXAPARIN NA (PORCINE) 40 MG/0.4 ML DISP.SYRIN SQ ONE (08:42)
--- NOTE | 2020-07-20 09:39 | CON.CARD ---
Consult Consult Specialty:: Cardiology Referred by:: Hospitalist Service Reason for Consultation:: Cardiac evaluation - History of Present Illness Chief Complaint: Chest pain and shortness of breath History of Present Illness: Patient is a 45 year old male with underlying history of depression and anxiety who presented with left sided chest discomfort radiating to left flank and described as sharp in sensation. He went to [facility] where he was advised to come to ED. He also complained of shortness of breath. He denies fever or chills. He denies nausea, vomiting, diarrhea or abdominal pain. He denies headache or lightheadedness. He has had suspected COVID in December. Last trip to [facility] was in September 2019. - History Source History Provided By: Patient, Medical Record Limitations to Obtaining History: Clinical Condition - Past Medical History Psych: Yes: Anxiety, Depression - Past Surgical History Past Surgical History: Yes: Hernia Repair - Alcohol/Substance Use Hx Alcohol Use: No History of Substance Use: reports: None - Smoking History Smoking history: Current every day smoker Have you smoked in the past 12 months: No Aproximately how many cigarettes per day: 20 Home Medications - Allergies Allergies/Adverse Reactions: Allergies Allergy/AdvReac Type Severity Reaction Status Date / Time No Known Allergies Allergy Verified 07/19/20 19:17 - Home Medications Home Medications: Ambulatory Orders Quetiapine Fumarate [Seroquel -] 50 mg PO BID 07/20/20 Venlafaxine HCl [Effexor -] 100 mg PO BID 07/20/20 Vortioxetine Hydrobromide [Trintellix] 20 mg PO DAILY 07/20/20 Review of Systems - Review of Systems Constitutional: denies: Chills, Fever Cardiovascular: reports: Chest Pain, Shortness of Breath. denies: Palpitations Respiratory: reports: Cough, SOB. denies: Hemoptysis, Orthopnea, PND, Wheezing Gastrointestinal: denies: Abdominal Pain, Constipation, Diarrhea, Melena, Nausea, Rectal Bleeding, Vomiting Neurological: denies: Dizziness, Headache, Seizure, Syncope Vital Signs: Vital Signs Temperature 98.2 F 07/20/20 09:00 Pulse Rate 98 H 07/20/20 09:00 Respiratory Rate 20 07/20/20 09:00 Blood Pressure 124/72 07/20/20 09:00 O2 Sat by Pulse Oximetry (%) 100 07/20/20 09:00 Neck: Yes: Supple Respiratory: Yes: Diminished Gastrointestinal: Yes: Normal Bowel Sounds, Soft. No: Tenderness Cardiovascular: Yes: Regular Rate and Rhythm JVD: No PMI: Non-Displaced Heart Sounds: Yes: S1, S2. No: Gallop Edema: No - Other Data Labs, Other Data: CBC, BMP 07/19/20 20:22 07/19/20 20:22 INR, PTT INR 1.00 (0.83-1.09) 07/19/20 20:22 Troponin, BNP 07/19/20 07/19/20 07/19/20 20:22 20:22 22:15 Troponin I < 0.02 < 0.02 B-Natriuretic Peptide 10.2 Normal sinus rhythm, normal ECG Imaging - Results Cat Scan: Report Reviewed (Chest CT: No PE. Presence of pulmonary nodule) EKG: Report Reviewed Problem List - Problems (1) Anxiety Code(s): F41.9 - ANXIETY DISORDER, UNSPECIFIED (2) Chest pain Code(s): R07.9 - CHEST PAIN, UNSPECIFIED Qualifiers: Chest pain type: unspecified Qualified Code(s): R07.9 - Chest pain, unspecified (3) Depression Code(s): F32.9 - MAJOR DEPRESSIVE DISORDER, SINGLE EPISODE, UNSPECIFIED (4) SOB (shortness of breath) Code(s): R06.02 - SHORTNESS OF BREATH Assessment/Plan 1. Clinical presentation suggests COPD exacerbation with long history of smoking 2. Rule out COVID previously negative 3. Pulmonary nodule 4. Anxiety and depression PLAN: 1. Continue steroid taper and bronchodilator as needed 2. Antibiotic coverage 3. Consider echocardiography to assess LV/RV and valvular function once COVID negative 4. COVID pending Further plans are to follow Josh Ruano MD
[2020-07-20] MEDS ORDERED: ZINC SULFATE 220 MG CAPSULE (FP) PO SCH (10:00)
[2020-07-20] MEDS ORDERED: ENOXAPARIN NA (PORCINE) 40 MG/0.4 ML DISP.SYRIN SQ SCH (10:00)
[2020-07-20] MEDS ORDERED: FAMOTIDINE 20 MG TABLET PO SCH (10:00)
[2020-07-20] MEDS ORDERED: CHOLECALCIFEROL (VIT D3) 400 UNIT (10 MCG) TABLET PO SCH (10:00)
[2020-07-20] MEDS ORDERED: ASCORBIC ACID 500 MG TABLET (FP) PO SCH (10:00)
[2020-07-20 11:15] VITALS: BMI 47.9
--- NOTE | 2020-07-20 11:35 | CON.ID ---
Consult Consult Specialty:: infectious disease Referred by:: hsopitalist service Reason for Consultation:: possible covid pneumonia - History of Present Illness Chief Complaint: chest pain and sob History of Present Illness: 45 yo morbidly obese man admitted with SOB and left sided chest pain reports breathing difficulties at home for last month ?fevers for several days lives alone active smoker - 1/2 to 1 PPD lives alone on disability due to mental health issues reorts similar episode in December- tested negative for covid at the time chest cta- suboptimal due to motion- miild cardiomegaly, no gross infiltrates noted - History Source History Provided By: Patient, Medical Record Limitations to Obtaining History: No Limitations - Past Medical History Psych: Yes: Anxiety, Depression - Past Surgical History Past Surgical History: Yes: Hernia Repair - Alcohol/Substance Use Hx Alcohol Use: Yes (beer) - Smoking History Smoking history: Current every day smoker Have you smoked in the past 12 months: Yes Aproximately how many cigarettes per day: 20 - Social History Usual Living Arrangement: Alone ADL: Independent Occupation: on diability Place of : Other ([facility]) History of Recent Travel: No Home Medications - Allergies Allergies/Adverse Reactions: Allergies Allergy/AdvReac Type Severity Reaction Status Date / Time No Known Allergies Allergy Verified 07/19/20 19:17 - Home Medications Home Medications: Ambulatory Orders Quetiapine Fumarate [Seroquel -] 50 mg PO BID 07/20/20 Venlafaxine HCl [Effexor -] 100 mg PO BID 07/20/20 Vortioxetine Hydrobromide [Trintellix] 20 mg PO DAILY 07/20/20 Family Medical History Family History: Denies Review of Systems - Review of Systems Constitutional: reports: Fever. denies: Unintentional Wgt. Loss Eyes: reports: No Symptoms HENT: reports: No Symptoms Neck: reports: No Symptoms Cardiovascular: reports: Chest Pain Respiratory: reports: SOB. denies: Cough Gastrointestinal: denies: Abdominal Pain, Diarrhea, Nausea, Vomiting Genitourinary: reports: No Symptoms Physical Exam Vital Signs: Vital Signs Temperature 98.2 F 07/20/20 11:00 Pulse Rate 94 H 07/20/20 11:00 Respiratory Rate 07/20/20 11:00 Blood Pressure 106/53 L 07/20/20 11:00 O2 Sat by Pulse Oximetry (%) 95 07/20/20 11:00 Constitutional: Yes: Obese Eyes: Yes: Conjunctiva Clear, EOM Intact HENT: Yes: Atraumatic, Normocephalic. No: Thrush Neck: Yes: Supple Cardiovascular: Yes: Regular Rate and Rhythm Respiratory: Yes: Diminished Gastrointestinal: Yes: Abdomen, Obese, Other (unable to appreciated oranomegaly due to obesity) Extremities: Yes: WNL, Other (scars on both wrists-well healed) Edema: No Psychiatric: Yes: Alert, Oriented Labs: CBC, BMP 07/19/20 20:22 07/19/20 20:22 Imaging - Results Cat Scan: Report Reviewed Problem List - Problems (1) SOB (shortness of breath) Code(s): R06.02 - SHORTNESS OF BREATH (2) Chest pain Code(s): R07.9 - CHEST PAIN, UNSPECIFIED Qualifiers: Chest pain type: unspecified Qualified Code(s): R07.9 - Chest pain, unspecified (3) Morbid obesity Code(s): E66.01 - MORBID (SEVERE) OBESITY DUE TO EXCESS CALORIES (4) Cigarette smoker Code(s): F17.210 - NICOTINE DEPENDENCE, CIGARETTES, UNCOMPLICATED (5) Depression Code(s): F32.9 - MAJOR DEPRESSIVE DISORDER, SINGLE EPISODE, UNSPECIFIED (6) Anxiety Code(s): F41.9 - ANXIETY DISORDER, UNSPECIFIED Assessment/Plan suspect copd exacerbation in active smoker/OSAS? await cardiology and pulmonary evaluation given history of fever at home? - will get cultures and urinary antigen received rocephn and zithromax this am will switch to doxycycline as zithromax has multiple drug interactions with his psychiatric meds await covid pcr- continue isolation
--- NOTE | 2020-07-20 11:49 | EKG ---
Test Reason : Blood Pressure : / mmHG Vent. Rate : 089 BPM Atrial Rate : 089 BPM P-R Int : 158 ms QRS Dur : 096 ms QT Int : 354 ms P-R-T Axes : 033 005 043 degrees QTc Int : 430 ms NORMAL SINUS RHYTHM NORMAL ECG NO PREVIOUS ECGS AVAILABLE Confirmed by PHAM MELENDEZ MD ([id number]) on 07/20/2020 11:49:35 AM Referred By: Confirmed By:PHAM MELENDEZ MD
[2020-07-20 12:00] LABS: BASO % 0.9 % (0-2.0); EOS % 3.8 % (0-4.5); HEMATOCRIT 42.8 % (35.4-49); LYMPH % 21.9 % (8-40); MCHC 32.7 g/dl (32.0-35.9); MEAN CELL VOLUME 88.8 fl (80-96); MEAN PLT VOLUME 8.1 fl (7.5-11.1); MONO % 11.3 % (3.8-10.2); NEUT % 62.1 % (42.8-82.8); PLATELET COUNT 229 K/MM3 (134-434); RBC 4.82 M/mm3 (4.00-5.60); RDW 14.5 % (11.9-15.9); WHITE BLOOD COUNT 11.1 K/mm3 (4.0-10.0)
[2020-07-20 12:37] LABS: ALBUMIN 3.3 g/dl (3.4-5.0); ALK PHOS 83 U/L (45-117); ANION GAP 6 MMOL/L (8-16); BILIRUBIN,TOTAL 0.4 mg/dL (0.2-1); BLOOD UREA NITROGEN 21.8 mg/dL (7-18); CALCIUM 8.7 mg/dL (8.5-10.1); CHLORIDE 106 mmol/L (98-107); CHOLESTEROL 230 mg/dL (50-200); CO2 29 mmol/L (21-32); CREATININE 0.7 mg/dL (0.55-1.3); GLUCOSE,RANDOM 85 mg/dL (74-106); HDL CHOLESTEROL 44 mg/dL (40-60); LDL CHOLESTEROL (ONLY SJRH) 146 mg/dL (5-100); MAGNESIUM 2.5 mg/dL (1.8-2.4); PHOSPHOROUS 3.7 mg/dL (2.5-4.9); POTASSIUM 4.1 mmol/L (3.5-5.1); SGOT/AST 13 U/L (15-37); SGPT/ALT 32 U/L (13-61); SODIUM 141 mmol/L (136-145); TOT PROT 6.5 g/dl (6.4-8.2); TRIGLYCERIDES 250 mg/dL (0-150)
--- NOTE | 2020-07-20 12:56 | CON.PULM ---
Consult Consult Specialty:: PULMONARY Referred by:: Dr Lomeli Reason for Consultation:: shortness of breath - History of Present Illness Chief Complaint: shortness of breath History of Present Illness: 45yo male with h/o depression/anxiety, suspected COVD19 in December, morbid obesity who was admitted with chest pain and shortness of breath x 2 days. No fevers, chills or sweats. Reports a nonproductive cough and wheezing. He is a 1 PPD smoker but denies history of asthma or COPD. Had a CTA chest in the ED which did not show evidence of a PE but did show a 7mm RML nodule. - History Source History Provided By: Patient, Medical Record Limitations to Obtaining History: Language Barrier - Past Medical History Psych: Yes: Anxiety, Depression - Past Surgical History Past Surgical History: Yes: Hernia Repair - Alcohol/Substance Use Hx Alcohol Use: Yes (beer) - Smoking History Smoking history: Current every day smoker Have you smoked in the past 12 months: Yes Aproximately how many cigarettes per day: 20 - Social History Usual Living Arrangement: Alone ADL: Independent Occupation: on diability History of Recent Travel: No Home Medications - Allergies Allergies/Adverse Reactions: Allergies Allergy/AdvReac Type Severity Reaction Status Date / Time No Known Allergies Allergy Verified 07/19/20 19:17 - Home Medications Home Medications: Ambulatory Orders Quetiapine Fumarate [Seroquel -] 50 mg PO BID 07/20/20 Venlafaxine HCl [Effexor -] 100 mg PO BID 07/20/20 Vortioxetine Hydrobromide [Trintellix] 20 mg PO DAILY 07/20/20 Family Medical History Family History: Denies Review of Systems - Review of Systems Constitutional: denies: Chills, Fever Eyes: denies: Recent Change in Vision HENT: denies: Nasal Congestion, Throat Pain Neck: denies: Stiffness, Tenderness Cardiovascular: reports: Chest Pain, Shortness of Breath. denies: Edema Respiratory: reports: Cough, SOB on Exertion, Wheezing. denies: Hemoptysis Gastrointestinal: denies: Abdominal Pain, Nausea, Vomiting Genitourinary: denies: Dysuria, Hematuria Endocrine: denies: Unexplained Weight Loss Physical Exam Vital Sings: Vital Signs Temperature 98.2 F 07/20/20 11:00 Pulse Rate 94 H 07/20/20 11:32 Respiratory Rate 20 07/20/20 11:00 Blood Pressure 106/53 L 07/20/20 11:00 O2 Sat by Pulse Oximetry (%) 95 07/20/20 11:32 Constitutional: Yes: Mild Distress Eyes: Yes: Conjunctiva Clear, EOM Intact HENT: Yes: Atraumatic, Normocephalic Neck: Yes: Supple, Trachea Midline Cardiovascular: Yes: Regular Rate and Rhythm Respiratory: Yes: Wheezes ...Clubbing: No Gastrointestinal: Yes: Normal Bowel Sounds, Soft. No: Tenderness Edema: No Neurological: Yes: Alert, Oriented Labs: CBC, BMP 07/20/20 11:15 07/20/20 11:15 Imaging - Results Chest X-ray: Report Reviewed, Image Reviewed Cat Scan: Report Reviewed, Image Reviewed (RML nodule) Assessment/Plan Acute COPD Exacerbation Smoker Anxiety/Depression Morbid Obesity - IV medrol - inhaled bronchodilators - O2 to keep SpO2 >90% - smoking cessation - outpt f/u of lung nodule - DVT prophylaxis Thank you for this consult Matti Zeng MD
[2020-07-20 12:58] LABS: ERYTHROCYTE SEDIMENTATION RATE 8 mm/hr (0-10)
[2020-07-20] MEDS: methylPREDNISolone NA SUCC 40 MG/1 ML VIAL IVPUSH SCH ×2 (14:38→18:49)
--- NOTE | 2020-07-20 14:59 | PN ---
Physical Exam: SUBJECTIVE: Patient seen and examined at bedside. Reports a sudden onset of pleuritic chest + epigastric chest pain and SOB for 2 days, worse with deep inspirations. Reports that he was covid + in January, this time is different from what he experienced when he had covid. Denies any fevers, chills, sore throat, SOB, dyspnea, peripheral edema. reports 1 PPD of smoking for >20 years OBJECTIVE: Vital Signs Period Temp Pulse Resp BP Sys/Goldstein Pulse Ox Last 24 Hr 97.5 F-98.4 F 93-129 20-24 95-128/53-78 93-100 GENERAL: AAOx3, in no acute distress HEENT: NCAT, PERRLA, EOMI, sclera anicteric, conjunctiva clear, oropharynx clear w/o exudates. MMM. NECK: Normal ROM, supple, no lymphadenopathy, JVD, or masses LUNGS: CTABL mild expiratory wheezes b/l. No rhonchi/ rales. No distress, speaks in full sentences. No increased work of breathing. HEART: RRR, normal S1 S2, no M/R/G, peripheral pulses 2+ and equal b/l ABDOMEN: Soft, distended, obese body habitus, TTP of Epigastric region, + BS. No guarding or rebound. MSK: ROM WNL, NO CVA tenderness EXTREMITIES: Normal inspection. No peripheral edema. No clubbing or cyanosis. NEUROLOGICAL: CN II-XII intact. Normal speech, gait not observed, no focal sensorimotor deficits. PSYCH: Normal mood, normal affect. SKIN: Warm, Dry, normal turgor, no rashes or lesions noted Laboratory Results - last 24 hr 07/19/20 07/19/20 07/19/20 20:22 20:22 20:22 WBC 12.0 H RBC 5.38 Hgb 15.6 Hct 47.5 MCV 88.2 MCH 29.0 MCHC 32.8 RDW 14.6 Plt Count 271 MPV 8.4 Absolute Neuts (auto) 7.8 Neutrophils % 64.5 Lymphocytes % 21.3 Monocytes % 10.2 Eosinophils % 3.2 Basophils % 0.8 Nucleated RBC % 0 ESR PT with INR 11.80 INR 1.00 D-Dimer 296 Sodium Potassium Chloride Carbon Dioxide Anion Gap BUN Creatinine Est GFR (CKD-EPI)AfAm Est GFR (CKD-EPI)NonAf Random Glucose Hemoglobin A1c % Calcium Phosphorus Magnesium Ferritin Total Bilirubin AST ALT Alkaline Phosphatase Creatine Kinase Troponin I B-Natriuretic Peptide Total Protein Albumin Triglycerides Cholesterol Total LDL Cholesterol HDL Cholesterol 07/19/20 07/19/20 07/19/20 20:22 20:22 22:15 WBC RBC Hgb Hct MCV MCH MCHC RDW Plt Count MPV Absolute Neuts (auto) Neutrophils % Lymphocytes % Monocytes % Eosinophils % Basophils % Nucleated RBC % ESR PT with INR INR D-Dimer Sodium 140 Potassium 4.5 Chloride 107 Carbon Dioxide 28 Anion Gap 6 L BUN 24.9 H Creatinine 0.7 Est GFR (CKD-EPI)AfAm 132.09 Est GFR (CKD-EPI)NonAf 113.97 Random Glucose 103 Hemoglobin A1c % Calcium 9.6 Phosphorus Magnesium Ferritin Total Bilirubin 0.3 AST 21 ALT 35 Alkaline Phosphatase 89 Creatine Kinase 114 94 Troponin I < 0.02 < 0.02 B-Natriuretic Peptide 10.2 Total Protein 7.6 Albumin 3.9 Triglycerides Cholesterol Total LDL Cholesterol HDL Cholesterol 07/20/20 07/20/20 07/20/20 11:15 11:15 11:15 WBC 11.1 H RBC 4.82 Hgb 14.0 Hct 42.8 MCV 88.8 MCH 29.0 MCHC 32.7 RDW 14.5 Plt Count 229 MPV 8.1 Absolute Neuts (auto) 6.9 Neutrophils % 62.1 Lymphocytes % 21.9 Monocytes % 11.3 H Eosinophils % 3.8 Basophils % 0.9 Nucleated RBC % 0 ESR 8 PT with INR INR D-Dimer Sodium 141 Potassium 4.1 Chloride 106 Carbon Dioxide 29 Anion Gap 6 L BUN 21.8 H Creatinine 0.7 Est GFR (CKD-EPI)AfAm 132.09 Est GFR (CKD-EPI)NonAf 113.97 Random Glucose 85 Hemoglobin A1c % 6.0 Calcium 8.7 Phosphorus 3.7 Magnesium 2.5 H Ferritin Total Bilirubin 0.4 AST 13 L ALT 32 Alkaline Phosphatase 83 Creatine Kinase Troponin I < 0.02 B-Natriuretic Peptide Total Protein 6.5 Albumin 3.3 L Triglycerides 250 H Cholesterol 230 H Total LDL Cholesterol 146 H HDL Cholesterol 44 07/20/20 11:15 WBC RBC Hgb Hct MCV MCH MCHC RDW Plt Count MPV Absolute Neuts (auto) Neutrophils % Lymphocytes % Monocytes % Eosinophils % Basophils % Nucleated RBC % ESR PT with INR INR D-Dimer Sodium Potassium Chloride Carbon Dioxide Anion Gap BUN Creatinine Est GFR (CKD-EPI)AfAm Est GFR (CKD-EPI)NonAf Random Glucose Hemoglobin A1c % Calcium Phosphorus Magnesium Ferritin 74.2 Total Bilirubin AST ALT Alkaline Phosphatase Creatine Kinase Troponin I B-Natriuretic Peptide Total Protein Albumin Triglycerides Cholesterol Total LDL Cholesterol HDL Cholesterol Active Medications Generic Name Dose Route Start Last Admin Trade Name Freq PRN Reason Stop Dose Admin Albuterol/Ipratropium 1 amp 07/20/20 16:00 Duoneb - NEB RQID ANNA Ascorbic Acid 500 mg 07/20/20 22:00 Vitamin C - PO BID ANNA Cholecalciferol 400 unit 07/21/20 10:00 Vitamin D3 - PO DAILY ANNA Enoxaparin Sodium 40 mg 07/21/20 10:00 Lovenox - SQ DAILY ANNA Famotidine 20 mg 07/20/20 22:00 Pepcid - PO BID ANNA Doxycycline Hyclate 100 mg/ 100 mls @ 100 mls/hr 07/20/20 22:00 Dextrose IVPB BID ANNA Methylprednisolone Sodium Succinate 60 mg 07/20/20 13:00 Solu-Medrol - IVPUSH Q8H-IV ANNA Pantoprazole Sodium 40 mg 07/21/20 07:00 Protonix - PO ACBK ANNA Zinc Sulfate 220 mg 07/20/20 22:00 Orazinc - PO BID ANNA ASSESSMENT/PLAN: Mr. Rdz is a 45 Y Malay speaking male with PMH of depression, anxiety Covid + in january (self reported) presents with 2 days of L sided chest pain + epigastric pain and shortness of breath admitted for COPD exacerbation vs r/o Covid. #COPD exacerbation vs r/o COVID - CTA chest: No PE, R lobe nonespecific 7mm Mass - Afibrile and hemodynamically stable, + leukocytosis 11.1 - ID, Dr. Martínez, is following: Switched zithro + rocephn to Doxy 100mg IVPB BID, due to possible multiple drug interactions with his psych meds -Pulmonary, Dr. Zegn, is following: IV medrol 60mg Q8H-IV Inhaled bronchodilators: Duoneb outpt f/u of lung nodule - Pending COVID PCR #Pleuritic chest pain + Epigastric Pain - Likely 2/2 to COPD exacerbation vs GI etiology(gastritis, PUD) less likely r/o Covid vs r/o ACS - Trop x 2 negative, EKG:NSR, no ST/T wave changes - Admitted to telemetry - Cardiology, Dr. Moreno, following Consider echocardiography to assess LV/RV and valvular function once COVID negative - HbA1c: 6.0 - LIPID PANEL: Trig 250, Cholesterol 230, LDL 146, HDL 44 - ASCVD risk: 7.6% FEN - No standing fluids - Will continue to monitor electrolytes - sodium controlled diet DVT ppx - Lovenox SQ Dispo - Will continue to monitor in [place], Pending Covid PCR Visit type - Emergency Visit Emergency Visit: Yes ED Registration Date: 07/19/20 Care time: The patient presented to the Emergency Department on the above date and was hospitalized for further evaluation of their emergent condition. - New Patient This patient is new to me today: No - Critical Care Critical Care patient: No - Discharge Referral Referred to [facility] Med P.C.: No ATTENDING PHYSICIAN STATEMENT I saw and evaluated the patient. I reviewed the resident's note and discussed the case with the resident. I agree with the resident's findings and plan as documented. SUBJECTIVE: OBJECTIVE: ASSESSMENT AND PLAN:
--- NOTE | 2020-07-20 17:10 | PN ---
Teaching Attending Note Name of Resident: Lj Vela ATTENDING PHYSICIAN STATEMENT I saw and evaluated the patient. I reviewed the resident's note and discussed the case with the resident. I agree with the resident's findings and plan as documented. SUBJECTIVE: Patient is feeling short of breath, with No fever or chills. OBJECTIVE: Vital Signs Temperature 98.2 F 07/20/20 11:00 Pulse Rate 94 H 07/20/20 11:32 Respiratory Rate 20 07/20/20 11:00 Blood Pressure 106/53 L 07/20/20 11:00 O2 Sat by Pulse Oximetry (%) 95 07/20/20 11:32 PE: per resident's note chest: + wheezing , with mild respiratory distress Abdomen: large abdomen Ext: + pulses CBCD WBC 11.1 K/mm3 (4.0-10.0) H 07/20/20 11:15 RBC 4.82 M/mm3 (4.00-5.60) 07/20/20 11:15 Hgb 14.0 GM/dL (11.7-16.9) 07/20/20 11:15 Hct 42.8 % (35.4-49) 07/20/20 11:15 MCV 88.8 fl (80-96) 07/20/20 11:15 MCHC 32.7 g/dl (32.0-35.9) 07/20/20 11:15 RDW 14.5 % (11.9-15.9) 07/20/20 11:15 Plt Count 229 K/MM3 (134-434) 07/20/20 11:15 MPV 8.1 fl (7.5-11.1) 07/20/20 11:15 CMP Sodium 141 mmol/L (136-145) 07/20/20 11:15 Potassium 4.1 mmol/L (3.5-5.1) 07/20/20 11:15 Chloride 106 mmol/L (98-107) 07/20/20 11:15 Carbon Dioxide 29 mmol/L (21-32) 07/20/20 11:15 Anion Gap 6 MMOL/L (8-16) L 07/20/20 11:15 BUN 21.8 mg/dL (7-18) H 07/20/20 11:15 Creatinine 0.7 mg/dL (0.55-1.3) 07/20/20 11:15 Random Glucose 85 mg/dL (74-106) 07/20/20 11:15 Calcium 8.7 mg/dL (8.5-10.1) 07/20/20 11:15 Total Bilirubin 0.4 mg/dL (0.2-1) 07/20/20 11:15 AST 13 U/L (15-37) L 07/20/20 11:15 ALT 32 U/L (13-61) 07/20/20 11:15 Alkaline Phosphatase 83 U/L (45-117) 07/20/20 11:15 Total Protein 6.5 g/dl (6.4-8.2) 07/20/20 11:15 Albumin 3.3 g/dl (3.4-5.0) L 07/20/20 11:15 CARDIAC ENZYMES Creatine Kinase 94 U/L (26-308) 07/19/20 22:15 Troponin I < 0.02 ng/ml (0.00-0.05) 07/20/20 11:15 Current Medications Generic Name Dose Route Start Last Admin Trade Name Freq PRN Reason Stop Dose Admin Albuterol/Ipratropium 1 amp 07/20/20 16:00 Duoneb - NEB RQID [facility] Ascorbic Acid 500 mg 07/20/20 22:00 Vitamin C - PO BID [facility] Cholecalciferol 400 unit 07/21/20 10:00 Vitamin D3 - PO DAILY [facility] Enoxaparin Sodium 40 mg 07/21/20 10:00 Lovenox - SQ DAILY [facility] Famotidine 20 mg 07/20/20 22:00 Pepcid - PO BID [facility] Doxycycline Hyclate 100 mg/ 100 mls @ 100 mls/hr 07/20/20 22:00 Dextrose IVPB BID [facility] Methylprednisolone Sodium Succinate 60 mg 07/20/20 13:00 07/20/20 14:38 Solu-Medrol - IVPUSH 60 mg Q8H-IV [facility] Administration Pantoprazole Sodium 40 mg 07/21/20 07:00 Protonix - PO ACBK [facility] Zinc Sulfate 220 mg 07/20/20 22:00 Orazinc - PO BID [facility] Home Medications Medication Instructions Recorded Quetiapine Fumarate [Seroquel -] 50 mg PO BID 07/20/20 Venlafaxine HCl [Effexor -] 100 mg PO BID 07/20/20 Vortioxetine Hydrobromide 20 mg PO DAILY 07/20/20 [Trintellix] Laboratory Tests 07/19/20 07/19/20 07/20/20 20:22 22:15 11:15 Hemoglobin A1c % Ferritin Troponin I < 0.02 < 0.02 < 0.02 Albumin 3.3 L Triglycerides 250 H Cholesterol 230 H Total LDL Cholesterol 146 H 07/20/20 07/20/20 11:15 11:15 Hemoglobin A1c % 6.0 Ferritin 74.2 Troponin I Albumin Triglycerides Cholesterol Total LDL Cholesterol CTA: No PE, 0.7cm right middle lobe nodule , 6months follow up on Chest CT for evaluation of growth, 1.1cm prevascular lymph node, mild CM, small hiatal hernia ASSESSMENT AND PLAN: This patient is a 45yom with Pmhx of depression/anxiety, suspected COVD19 in December, morbid obesity who was admitted with chest pain and shortness of breath x 2 days. #Acute COPD Exacerbation: solumerol IV, doxy, duoneb continue , pulm/ID on the case, questionable covid ; continue to monitor markers, O2 to keep SpO2 >90% #Anxiety/Depression: Qtc is 436, continue home seroquel/ effexor/ trintellix if pharmacy does not have his meds, he should be taking it his own #Tobacco smoking: Nicotine patch and cessation of smoking #Morbid Obesity: lifestle modifications #Lung nodule 0.7cm : outpt f/u of lung nodule within 6 months #R/O covid: follow daily markers. ferritin/ldh/crp/dimer #hyperlipidemia; will start him on lipitor 20mg po , lifestyle modifications DVT prophylaxis: lovenox
[2020-07-20] MEDS ORDERED: PATIENT'S OWN MEDICATION (NON-FORMULARY) (Vortioxetine Hydrobromide [Trintellix] 20 MG) PO SCH (17:15)
[2020-07-20] MEDS ORDERED: ALBUTEROL SO4 HFA INHALER IH PRN (20:33)
[2020-07-20] MEDS ORDERED: DEXTROSE 5%-WATER 100 ML IVPB ONE ×2 (21:48→21:52)
[2020-07-20] MEDS ORDERED: DOXYCYCLINE HYCLATE 100 MG VIAL ONE ×2 (21:48→21:52)
[2020-07-20] MEDS: ATORVASTATIN CA 20 MG TABLET (FP) PO SCH (21:59)
[2020-07-20] MEDS: ASCORBIC ACID 500 MG TABLET (FP) PO SCH (21:59)
[2020-07-20] MEDS: FAMOTIDINE 20 MG TABLET PO SCH (21:59)
[2020-07-20] MEDS: QUEtiapine FUMARATE 50 MG TABLET PO SCH (21:59)
[2020-07-20] MEDS: DOXYCYCLINE INJECTION 100 MG in DEXTROSE 5%-WATER 100 ML IVPB SCH (21:59)
[2020-07-20] MEDS: ZINC SULFATE 220 MG CAPSULE (FP) PO SCH (21:59)
[2020-07-20] MEDS ORDERED: VENLAFAXINE HCL 100 MG TABLET PO SCH (22:00)
[2020-07-20] MEDS ORDERED: VENLAFAXINE HCL 25 MG TABLET PO SCH (22:10)
[2020-07-20] MEDS: VENLAFAXINE HCL 25 MG TABLET PO SCH (23:10)
[2020-07-21] MEDS: methylPREDNISolone NA SUCC 40 MG/1 ML VIAL IVPUSH SCH ×3 (02:13→18:14)
[2020-07-21] MEDS: PANTOPRAZOLE 40 MG TABLET PO SCH (06:06)
[2020-07-21 08:22] LABS: BASO % 0.1 % (0-2.0); EOS % 0.1 % (0-4.5); HEMATOCRIT 42.7 % (35.4-49); HEMOGLOBIN 14.1 GM/dL (11.7-16.9); LYMPH % 9.5 % (8-40); MCH 29.3 pg (25.7-33.7); MCHC 33.1 g/dl (32.0-35.9); MEAN CELL VOLUME 88.4 fl (80-96); MONO % 1.9 % (3.8-10.2); NEUT % 88.4 % (42.8-82.8); PLATELET COUNT 238 K/MM3 (134-434); RBC 4.83 M/mm3 (4.00-5.60); RDW 14.3 % (11.9-15.9); WHITE BLOOD COUNT 11.6 K/mm3 (4.0-10.0)
[2020-07-21 08:33] LABS: URINE APPEARANCE TURBID; URINE BILIRUBIN NEGATIVE (NEGATIVE); URINE COLOR YELLOW; URINE GLUCOSE (UA) NEGATIVE (NEGATIVE); URINE KETONE NEGATIVE (NEGATIVE); URINE LEUK ESTERASE NEGATIVE (NEGATIVE); URINE NITRITE NEGATIVE (NEGATIVE); URINE PROTEIN TRACE (NEGATIVE); URINE UROBILINOGEN 0.2 mg/dL (0.2-1.0)
[2020-07-21 09:09] LABS: COCAINE, UR NEGATIVE ng/ml (CUTOFF=300); METHADONE, UR NEGATIVE ng/ml (CUTOFF=300); OPIATES, URI NEGATIVE ng/ml (CUTOFF=300); PHENCYCLIDINE,URINE NEGATIVE ng/ml (CUTOFF=25); URINE AMPHETAMINES NEGATIVE ng/ml (CUTOFF=500); URINE BARBITURATES NEGATIVE ng/ml (CUTOFF=200); URINE BENZODIAZEPINES NEGATIVE ng/ml (CUTOFF=200)
[2020-07-21 09:36] LABS: ALBUMIN 3.4 g/dl (3.4-5.0); BILIRUBIN,TOTAL 0.3 mg/dL (0.2-1); CALCIUM 9.2 mg/dL (8.5-10.1); CREATININE 0.6 mg/dL (0.55-1.3); MAGNESIUM 2.5 mg/dL (1.8-2.4); PHOSPHOROUS 3.3 mg/dL (2.5-4.9); POTASSIUM 4.4 mmol/L (3.5-5.1); TOT PROT 6.7 g/dl (6.4-8.2)
[2020-07-21] MEDS ORDERED: AZITHROMYCIN IVPB 500 MG in DEXTROSE 5%-WATER - 250 ML IVPB SCH (10:00)
[2020-07-21] MEDS ORDERED: DOXYCYCLINE HYCLATE 100 MG VIAL ONE (10:23)
[2020-07-21] MEDS ORDERED: DEXTROSE 5%-WATER 100 ML IVPB ONE (10:23)
[2020-07-21] MEDS ORDERED: PT OWN MED DRAWER 7, Y5N ONE ×4 (10:24→21:13)
[2020-07-21] MEDS: DOXYCYCLINE INJECTION 100 MG in DEXTROSE 5%-WATER 100 ML IVPB SCH (10:41)
[2020-07-21] MEDS: ENOXAPARIN NA (PORCINE) 40 MG/0.4 ML DISP.SYRIN SQ SCH (10:42)
[2020-07-21] MEDS: QUEtiapine FUMARATE 50 MG TABLET PO SCH ×2 (10:42→21:19)
[2020-07-21] MEDS: ASCORBIC ACID 500 MG TABLET (FP) PO SCH ×2 (10:42→21:19)
[2020-07-21] MEDS: ZINC SULFATE 220 MG CAPSULE (FP) PO SCH (10:42)
[2020-07-21] MEDS: CHOLECALCIFEROL (VIT D3) 400 UNIT (10 MCG) TABLET PO SCH (10:42)
[2020-07-21] MEDS: FAMOTIDINE 20 MG TABLET PO SCH ×2 (10:42→21:19)
[2020-07-21] MEDS: VENLAFAXINE HCL 25 MG TABLET PO SCH ×2 (10:43→21:18)
--- NOTE | 2020-07-21 11:17 | PN ---
Progress Note, Physician Chief Complaint: Intermittent dyspnea History of Present Illness: Patient was seen and examined. Awake and alert. Chart was reviewed Denies chest pain or palpitations - Current Medication List Current Medications: Active Medications Albuterol Sulfate (Ventolin Hfa Inhaler -) 2 puff IH Q4H PRN PRN Reason: SHORT OF BREATH/WHEEZING Albuterol/Ipratropium (Duoneb -) 1 amp NEB RQID [facility] Ascorbic Acid (Vitamin C -) 500 mg PO BID [facility] Last Admin: 07/21/20 10:42 Dose: 500 mg Documented by: Atorvastatin Calcium (Lipitor -) 20 mg PO HS [facility] Last Admin: 07/20/20 21:59 Dose: 20 mg Documented by: Cholecalciferol (Vitamin D3 -) 400 unit PO DAILY [facility] Last Admin: 07/21/20 10:42 Dose: 400 unit Documented by: Enoxaparin Sodium (Lovenox -) 40 mg SQ DAILY [facility] Last Admin: 07/21/20 10:42 Dose: 40 mg Documented by: Famotidine (Pepcid -) 20 mg PO BID [facility] Last Admin: 07/21/20 10:42 Dose: 20 mg Documented by: Doxycycline Hyclate 100 mg/ (Dextrose) 100 mls @ 100 mls/hr IVPB BID [facility] Last Admin: 07/21/20 10:41 Dose: 100 mls/hr Documented by: Methylprednisolone Sodium Succinate (Solu-Medrol -) 60 mg IVPUSH Q8H-IV [facility] Last Admin: 07/21/20 10:41 Dose: 60 mg Documented by: Non-Formulary Medication (Vortioxetine Hydrobromide [Trintellix]) 20 mg PO DAILY [facility] Pantoprazole Sodium (Protonix -) 40 mg PO ACBK [facility] Last Admin: 07/21/20 06:06 Dose: 40 mg Documented by: Quetiapine Fumarate (Seroquel -) 50 mg PO BID [facility] Last Admin: 07/21/20 10:42 Dose: 50 mg Documented by: Venlafaxine HCl (Effexor -) 100 mg PO BID [facility] Last Admin: 07/21/20 10:43 Dose: 100 mg Documented by: Zinc Sulfate (Orazinc -) 220 mg PO BID [facility] Last Admin: 07/21/20 10:42 Dose: 220 mg Documented by: - Objective Vital Signs: Vital Signs Temperature 97.3 F L 07/21/20 05:48 Pulse Rate 100 H 07/21/20 05:48 Respiratory Rate 20 07/21/20 05:48 Blood Pressure 112/54 L 07/21/20 05:48 O2 Sat by Pulse Oximetry (%) 96 07/21/20 05:48 Neck: Yes: Supple Cardiovascular: Yes: Regular Rate and Rhythm, S1, S2 Respiratory: Yes: Diminished Gastrointestinal: Yes: Normal Bowel Sounds, Soft. No: Tenderness Edema: No Labs: CBC, BMP 07/21/20 07:45 07/21/20 07:45 INR, PTT INR 1.00 (0.83-1.09) 07/19/20 20:22 Problem List - Problems (1) Anxiety Code(s): F41.9 - ANXIETY DISORDER, UNSPECIFIED (2) Chest pain Code(s): R07.9 - CHEST PAIN, UNSPECIFIED Qualifiers: Chest pain type: unspecified Qualified Code(s): R07.9 - Chest pain, unspecified (3) Depression Code(s): F32.9 - MAJOR DEPRESSIVE DISORDER, SINGLE EPISODE, UNSPECIFIED (4) SOB (shortness of breath) Code(s): R06.02 - SHORTNESS OF BREATH (5) Hypercholesterolemia Code(s): E78.00 - PURE HYPERCHOLESTEROLEMIA, UNSPECIFIED Assessment/Plan 1. Clinical presentation suggests COPD exacerbation with long history of smoking 2. Pulmonary nodule 3. Anxiety and depression 4. Hypercholesterolemia PLAN: 1. Continue steroid taper and bronchodilator as needed 2. Antibiotic coverage 3. Consider echocardiography to assess LV/RV and valvular function 4. Atorvastatin 20 mg QHS Further plans are to follow Josh Ruano MD
--- NOTE | 2020-07-21 15:00 | PN ---
Progress Note (short form) - Note Progress Note: snores when he sleeps feels better no chest pain less sob Vital Signs Period Temp Pulse Resp BP Sys/Goldstein Pulse Ox Last 24 Hr 97.3 F-98.1 F 100-115 20-20 112-156/54-87 91-96 cor-rrr lungs decreased bs at bases abd soft,nt ext no edema CBC, BMP 07/21/20 07:45 07/21/20 07:45 Laboratory Tests 07/19/20 07/19/20 20:22 22:48 D-Dimer 296 COVID-19 (ACE) Not detected Microbiology 07/20/20 12:10 Blood - Peripheral Venous Blood Culture - Preliminary NO GROWTH OBTAINED AFTER 24 HOURS, INCUBATION TO CONTINUE FOR 4 DAYS. 07/20/20 12:00 Blood - Peripheral Venous Blood Culture - Preliminary NO GROWTH OBTAINED AFTER 24 HOURS, INCUBATION TO CONTINUE FOR 4 DAYS. 07/21/20 07:00 Urine For Antigen Detection Legionella Antigen - Final 07/21/20 07:00 Urine For Antigen Detection Streptococcus pneumoniae Antigen (M - Final Active Medications Albuterol Sulfate (Ventolin Hfa Inhaler -) 2 puff IH Q4H PRN PRN Reason: SHORT OF BREATH/WHEEZING Albuterol/Ipratropium (Duoneb -) 1 amp NEB RQID ANNA Ascorbic Acid (Vitamin C -) 500 mg PO BID [facility] Last Admin: 07/21/20 10:42 Dose: 500 mg Documented by: Atorvastatin Calcium (Lipitor -) 20 mg PO HS [facility] Last Admin: 07/20/20 21:59 Dose: 20 mg Documented by: Cholecalciferol (Vitamin D3 -) 400 unit PO DAILY [facility] Last Admin: 07/21/20 10:42 Dose: 400 unit Documented by: Enoxaparin Sodium (Lovenox -) 40 mg SQ DAILY [facility] Last Admin: 07/21/20 10:42 Dose: 40 mg Documented by: Famotidine (Pepcid -) 20 mg PO BID [facility] Last Admin: 07/21/20 10:42 Dose: 20 mg Documented by: Doxycycline Hyclate 100 mg/ (Dextrose) 100 mls @ 100 mls/hr IVPB BID [facility] Last Admin: 07/21/20 10:41 Dose: 100 mls/hr Documented by: Methylprednisolone Sodium Succinate (Solu-Medrol -) 60 mg IVPUSH Q8H-IV [facility] Last Admin: 07/21/20 10:41 Dose: 60 mg Documented by: Non-Formulary Medication (Vortioxetine Hydrobromide [Trintellix]) 20 mg PO DAILY [facility] Pantoprazole Sodium (Protonix -) 40 mg PO ACBK [facility] Last Admin: 07/21/20 06:06 Dose: 40 mg Documented by: Quetiapine Fumarate (Seroquel -) 50 mg PO BID [facility] Last Admin: 07/21/20 10:42 Dose: 50 mg Documented by: Venlafaxine HCl (Effexor -) 100 mg PO BID [facility] Last Admin: 07/21/20 10:43 Dose: 100 mg Documented by: Zinc Sulfate (Orazinc -) 220 mg PO BID [facility] Last Admin: 07/21/20 10:42 Dose: 220 mg Documented by: a/p copd exacerbation- switch to po doxycycline, steroid/inhalers per pulmonary covid negative smoking cessation weight loss history of depression- please call back if needed Problem List - Problems (1) SOB (shortness of breath) Code(s): R06.02 - SHORTNESS OF BREATH (2) Chest pain Code(s): R07.9 - CHEST PAIN, UNSPECIFIED Qualifiers: Chest pain type: unspecified Qualified Code(s): R07.9 - Chest pain, unspecified (3) Morbid obesity Code(s): E66.01 - MORBID (SEVERE) OBESITY DUE TO EXCESS CALORIES (4) Cigarette smoker Code(s): F17.210 - NICOTINE DEPENDENCE, CIGARETTES, UNCOMPLICATED (5) Depression Code(s): F32.9 - MAJOR DEPRESSIVE DISORDER, SINGLE EPISODE, UNSPECIFIED (6) Anxiety Code(s): F41.9 - ANXIETY DISORDER, UNSPECIFIED
[2020-07-21] MEDS ORDERED: NICOTINE 7 MG/24 HOURS TOPICAL PATCH TD SCH (16:00)
--- NOTE | 2020-07-21 16:27 | PN ---
Physical Exam: SUBJECTIVE: Patient seen and examined at bedside, reports he feels better. No acute events overnight, no new complaints OBJECTIVE: Vital Signs Period Temp Pulse Resp BP Sys/Goldstein Pulse Ox Last 24 Hr 97.3 F-98.1 F 100-115 20-20 112-156/54-87 91-96 GENERAL: AAOx3, in no acute distress HEENT: NCAT, PERRLA, EOMI, sclera anicteric, conjunctiva clear, oropharynx clear w/o exudates. MMM. NECK: Normal ROM, supple, no lymphadenopathy, JVD, or masses LUNGS: CTABL No wheez/rhonchi/ rales. No distress, speaks in full sentences. No increased work of breathing. HEART: RRR, normal S1 S2, no M/R/G, peripheral pulses 2+ and equal b/l ABDOMEN: Soft, distended, obese body habitus, TTP of Epigastric region, + BS. No guarding or rebound. MSK: ROM WNL, NO CVA tenderness EXTREMITIES: Normal inspection. No peripheral edema. No clubbing or cyanosis. NEUROLOGICAL: CN II-XII intact. Normal speech, gait not observed, no focal sensorimotor deficits. PSYCH: Normal mood, normal affect. SKIN: Warm, Dry, normal turgor, no rashes or lesions noted Laboratory Results - last 24 hr 07/19/20 07/21/20 07/21/20 22:48 07:00 07:00 WBC RBC Hgb Hct MCV MCH MCHC RDW Plt Count MPV Absolute Neuts (auto) Neutrophils % Lymphocytes % Monocytes % Eosinophils % Basophils % Nucleated RBC % D-Dimer Sodium Potassium Chloride Carbon Dioxide Anion Gap BUN Creatinine Est GFR (CKD-EPI)AfAm Est GFR (CKD-EPI)NonAf Random Glucose Calcium Phosphorus Magnesium Ferritin Total Bilirubin AST ALT Alkaline Phosphatase LD Total C-Reactive Protein Total Protein Albumin Urine Color Yellow Urine Appearance Turbid Urine pH 5.0 Ur Specific [place] 1.029 Urine Protein Trace Urine Glucose (UA) Negative Urine Ketones Negative Urine Blood Negative Urine Nitrite Negative Urine Bilirubin Negative Urine Urobilinogen 0.2 Ur Leukocyte Esterase Negative Opiates Screen Negative Methadone Screen Negative Barbiturate Screen Negative Phencyclidine Screen Negative Ur Amphetamines Screen Negative MDMA (Ecstasy) Screen Negative Benzodiazepines Screen Negative Cocaine Screen Negative U Marijuana (THC) Screen Negative COVID-19 (ACE) Not detected 07/21/20 07/21/20 07/21/20 07:45 07:45 07:45 WBC 11.6 H RBC 4.83 Hgb 14.1 Hct 42.7 MCV 88.4 MCH 29.3 MCHC 33.1 RDW 14.3 Plt Count 238 MPV 8.0 Absolute Neuts (auto) 10.3 H Neutrophils % 88.4 H D Lymphocytes % 9.5 D Monocytes % 1.9 L D Eosinophils % 0.1 D Basophils % 0.1 Nucleated RBC % 0 D-Dimer < 215 Sodium 139 Potassium 4.4 Chloride 106 Carbon Dioxide 27 Anion Gap 5 L BUN 22.0 H Creatinine 0.6 Est GFR (CKD-EPI)AfAm 140.73 Est GFR (CKD-EPI)NonAf 121.43 Random Glucose 138 H Calcium 9.2 Phosphorus 3.3 Magnesium 2.5 H Ferritin 75.7 Total Bilirubin 0.3 AST 10 L ALT 31 Alkaline Phosphatase 86 LD Total 155 C-Reactive Protein 1.4 H Total Protein 6.7 Albumin 3.4 Urine Color Urine Appearance Urine pH Ur Specific [place] Urine Protein Urine Glucose (UA) Urine Ketones Urine Blood Urine Nitrite Urine Bilirubin Urine Urobilinogen Ur Leukocyte Esterase Opiates Screen Methadone Screen Barbiturate Screen Phencyclidine Screen Ur Amphetamines Screen MDMA (Ecstasy) Screen Benzodiazepines Screen Cocaine Screen U Marijuana (THC) Screen COVID-19 (ACE) Active Medications Generic Name Dose Route Start Last Admin Trade Name Freq PRN Reason Stop Dose Admin Albuterol Sulfate 2 puff 07/20/20 20:33 Ventolin Hfa Inhaler - IH Q4H PRN SHORT OF BREATH/WHEEZING Albuterol/Ipratropium 1 amp 07/21/20 16:00 Duoneb - NEB RQID ANNA Ascorbic Acid 500 mg 07/20/20 22:00 07/21/20 10:42 Vitamin C - PO 500 mg BID ANNA Administration Atorvastatin Calcium 20 mg 07/20/20 22:00 07/20/20 21:59 Lipitor - PO 20 mg HS ANNA Administration Cholecalciferol 400 unit 07/21/20 10:00 07/21/20 10:42 Vitamin D3 - PO 400 unit DAILY ANNA Administration Doxycycline Hyclate 100 mg 07/21/20 18:00 Vibramycin - PO BID@1000,1800 [facility] Enoxaparin Sodium 40 mg 07/21/20 10:00 07/21/20 10:42 Lovenox - SQ 40 mg DAILY ANNA Administration Famotidine 20 mg 07/20/20 22:00 07/21/20 10:42 Pepcid - PO 20 mg BID ANNA Administration Methylprednisolone Sodium Succinate 60 mg 07/20/20 13:00 07/21/20 10:41 Solu-Medrol - IVPUSH 60 mg Q8H-IV ANNA Administration Nicotine Polacrilex 2 mg 07/21/20 16:06 Nicorette Gum - BUC Q2H PRN NICOTINE REPLACEMENT RX Non-Formulary Medication 20 mg 07/20/20 17:15 Vortioxetine Hydrobromide [Trintellix] PO DAILY ANNA Pantoprazole Sodium 40 mg 07/21/20 07:00 07/21/20 06:06 Protonix - PO 40 mg ACBK ANNA Administration Quetiapine Fumarate 50 mg 07/20/20 22:00 07/21/20 10:42 Seroquel - PO 50 mg BID ANNA Administration Venlafaxine HCl 100 mg 07/20/20 23:00 07/21/20 10:43 Effexor - PO 100 mg BID ANNA Administration ASSESSMENT/PLAN: Mr. Rdz is a 45 Y Tajik speaking male with PMH of depression, anxiety Covid + in january (self reported) presents with 2 days of L sided chest pain + epigastric pain and shortness of breath admitted for COPD exacerbation vs r/o Covid. #COPD exacerbation - CTA chest: No PE, R lobe nonespecific 7mm Mass - Afibrile and hemodynamically stable, + leukocytosis 11.6 - ID, Dr. Martínez, is following: Switched zithro + rocephn to Doxy 100mg IVPB BID, due to possible multiple drug interactions with his psych meds -Pulmonary, Dr. Zeng, is following: IV medrol 60mg Q8H-IV Inhaled bronchodilators: Duoneb outpt f/u of lung nodule - COVID PCR negative - Tolerating room air: O2 Sat @ 96% on RA #Pleuritic chest pain + Epigastric Pain - Likely 2/2 to COPD exacerbation vs GI etiology(gastritis, PUD) less likelyCovid vs ACS - Trop x 2 negative, EKG: NSR, no ST/T wave changes - Admitted to telemetry- No acute events overnight, NSR - Cardiology, Dr. Moreno, following Consider echocardiography to assess LV/RV and valvular function once COVID negative #HLD - LIPID PANEL: Trig 250, Cholesterol 230, LDL 146, HDL 44, HbA1c: 6.0 - ASCVD risk: 7.6% - Started Lipitor 20mg #Tobacco smoking - patient is anxious and agitated, asking for Nicotine gum - Continue with Nicotine Polacrilex FEN - No standing fluids - Will continue to monitor electrolytes - sodium controlled diet DVT ppx - Lovenox SQ Dispo - Will continue to monitor in [place], Covid -, Planning D/C Visit type - Emergency Visit Emergency Visit: Yes ED Registration Date: 07/19/20 Care time: The patient presented to the Emergency Department on the above date and was hospitalized for further evaluation of their emergent condition. - New Patient This patient is new to me today: No - Critical Care Critical Care patient: No - Discharge Referral Referred to [facility] Med P.C.: No ATTENDING PHYSICIAN STATEMENT I saw and evaluated the patient. I reviewed the resident's note and discussed the case with the resident. I agree with the resident's findings and plan as documented. SUBJECTIVE: OBJECTIVE: ASSESSMENT AND PLAN:
--- NOTE | 2020-07-21 17:10 | PN ---
Teaching Attending Note Name of Resident: Lj Veal ATTENDING PHYSICIAN STATEMENT I saw and evaluated the patient. I reviewed the resident's note and discussed the case with the resident. I agree with the resident's findings and plan as documented. SUBJECTIVE: Patient feels less SOB. OBJECTIVE: Vital Signs Period Temp Pulse Resp BP Sys/Goldstein Pulse Ox Last 24 Hr 97.3 F-98.1 F 100-115 20-20 112-156/54-87 91-96 HEART: S1S2, tachycardic LUNGS: Few expiratory wheezes ABDOMEN: Obese, soft, non-tender, non-distended, normal BS EXTREMITIES: No edema Laboratory Results - last 24 hr 07/19/20 07/21/20 07/21/20 22:48 07:00 07:00 WBC RBC Hgb Hct MCV MCH MCHC RDW Plt Count MPV Absolute Neuts (auto) Neutrophils % Lymphocytes % Monocytes % Eosinophils % Basophils % Nucleated RBC % D-Dimer Sodium Potassium Chloride Carbon Dioxide Anion Gap BUN Creatinine Est GFR (CKD-EPI)AfAm Est GFR (CKD-EPI)NonAf Random Glucose Calcium Phosphorus Magnesium Ferritin Total Bilirubin AST ALT Alkaline Phosphatase LD Total C-Reactive Protein Total Protein Albumin Urine Color Yellow Urine Appearance Turbid Urine pH 5.0 Ur Specific [place] 1.029 Urine Protein Trace Urine Glucose (UA) Negative Urine Ketones Negative Urine Blood Negative Urine Nitrite Negative Urine Bilirubin Negative Urine Urobilinogen 0.2 Ur Leukocyte Esterase Negative Opiates Screen Negative Methadone Screen Negative Barbiturate Screen Negative Phencyclidine Screen Negative Ur Amphetamines Screen Negative MDMA (Ecstasy) Screen Negative Benzodiazepines Screen Negative Cocaine Screen Negative U Marijuana (THC) Screen Negative COVID-19 (ACE) Not detected 07/21/20 07/21/20 07/21/20 07:45 07:45 07:45 WBC 11.6 H RBC 4.83 Hgb 14.1 Hct 42.7 MCV 88.4 MCH 29.3 MCHC 33.1 RDW 14.3 Plt Count 238 MPV 8.0 Absolute Neuts (auto) 10.3 H Neutrophils % 88.4 H D Lymphocytes % 9.5 D Monocytes % 1.9 L D Eosinophils % 0.1 D Basophils % 0.1 Nucleated RBC % 0 D-Dimer < 215 Sodium 139 Potassium 4.4 Chloride 106 Carbon Dioxide 27 Anion Gap 5 L BUN 22.0 H Creatinine 0.6 Est GFR (CKD-EPI)AfAm 140.73 Est GFR (CKD-EPI)NonAf 121.43 Random Glucose 138 H Calcium 9.2 Phosphorus 3.3 Magnesium 2.5 H Ferritin 75.7 Total Bilirubin 0.3 AST 10 L ALT 31 Alkaline Phosphatase 86 LD Total 155 C-Reactive Protein 1.4 H Total Protein 6.7 Albumin 3.4 Urine Color Urine Appearance Urine pH Ur Specific [place] Urine Protein Urine Glucose (UA) Urine Ketones Urine Blood Urine Nitrite Urine Bilirubin Urine Urobilinogen Ur Leukocyte Esterase Opiates Screen Methadone Screen Barbiturate Screen Phencyclidine Screen Ur Amphetamines Screen MDMA (Ecstasy) Screen Benzodiazepines Screen Cocaine Screen U Marijuana (THC) Screen COVID-19 (ACE) Current Medications Generic Name Dose Route Start Last Admin Trade Name Freq PRN Reason Stop Dose Admin Albuterol Sulfate 2 puff 07/20/20 20:33 Ventolin Hfa Inhaler - IH Q4H PRN SHORT OF BREATH/WHEEZING Albuterol/Ipratropium 1 amp 07/21/20 16:00 Duoneb - NEB RQID ANNA Ascorbic Acid 500 mg 07/20/20 22:00 07/21/20 10:42 Vitamin C - PO 500 mg BID ANNA Administration Atorvastatin Calcium 20 mg 07/20/20 22:00 07/20/20 21:59 Lipitor - PO 20 mg HS ANNA Administration Cholecalciferol 400 unit 07/21/20 10:00 07/21/20 10:42 Vitamin D3 - PO 400 unit DAILY ANNA Administration Doxycycline Hyclate 100 mg 07/21/20 18:00 Vibramycin - PO BID@1000,1800 ANNA Enoxaparin Sodium 40 mg 07/21/20 10:00 07/21/20 10:42 Lovenox - SQ 40 mg DAILY ANNA Administration Famotidine 20 mg 07/20/20 22:00 07/21/20 10:42 Pepcid - PO 20 mg BID ANNA Administration Methylprednisolone Sodium Succinate 60 mg 07/20/20 13:00 07/21/20 10:41 Solu-Medrol - IVPUSH 60 mg Q8H-IV ANNA Administration Nicotine Polacrilex 2 mg 07/21/20 16:06 Nicorette Gum - BUC Q2H PRN NICOTINE REPLACEMENT RX Non-Formulary Medication 20 mg 07/20/20 17:15 Vortioxetine Hydrobromide [Trintellix] PO DAILY ANNA Pantoprazole Sodium 40 mg 07/21/20 07:00 07/21/20 06:06 Protonix - PO 40 mg ACBK ANNA Administration Quetiapine Fumarate 50 mg 07/20/20 22:00 07/21/20 10:42 Seroquel - PO 50 mg BID ANNA Administration Venlafaxine HCl 100 mg 07/20/20 23:00 07/21/20 10:43 Effexor - PO 100 mg BID ANNA Administration ASSESSMENT AND PLAN: This is a 45 year old man with a history of depression/anxiety, suspected COVID- 19, morbid obesity who presented to the ED with chest pain and shortness of breath. 1. Acute exacerbation of COPD - Improving - Taper SoluMedrol - Continue Doxycycline, DuoNeb - Continue oxygen as needed to keep O2 sat>90% 2. Nicotine dependence - Continue nicotine gum as needed 3. Morbid obesity with BMI 47.9
[2020-07-21] MEDS: NICOTINE POLACRILEX 2 MG GUM BUC PRN (18:14)
[2020-07-21] MEDS: DOXYCYCLINE HYCLATE 100 MG CAPSULE PO SCH (18:14)
--- NOTE | 2020-07-21 20:28 | PN ---
Progress Note (short form) - Note Progress Note: Breathing feels a little better. Still with some exertional dyspnea. No CP. Afebrile. Intake & Output 07/18/20 07/19/20 07/20/20 07/21/20 23:59 23:59 23:59 23:59 Intake Total 820 220 Balance 820 220 Weight 300 lb 306 lb Last Vital Signs Temp Pulse Resp BP Pulse Ox 97.9 F 107 H 20 114/63 93 L 07/21/20 19:08 07/21/20 19:08 07/21/20 19:08 07/21/20 19:08 07/21/20 19:08 Active Medications Albuterol Sulfate (Ventolin Hfa Inhaler -) 2 puff IH Q4H PRN PRN Reason: SHORT OF BREATH/WHEEZING Albuterol/Ipratropium (Duoneb -) 1 amp NEB RQID [facility] Ascorbic Acid (Vitamin C -) 500 mg PO BID [facility] Last Admin: 07/21/20 10:42 Dose: 500 mg Documented by: Atorvastatin Calcium (Lipitor -) 20 mg PO HS [facility] Last Admin: 07/20/20 21:59 Dose: 20 mg Documented by: Cholecalciferol (Vitamin D3 -) 400 unit PO DAILY [facility] Last Admin: 07/21/20 10:42 Dose: 400 unit Documented by: Doxycycline Hyclate (Vibramycin -) 100 mg PO BID@1000,1800 [facility] Last Admin: 07/21/20 18:14 Dose: 100 mg Documented by: Enoxaparin Sodium (Lovenox -) 40 mg SQ DAILY [facility] Last Admin: 07/21/20 10:42 Dose: 40 mg Documented by: Famotidine (Pepcid -) 20 mg PO BID [facility] Last Admin: 07/21/20 10:42 Dose: 20 mg Documented by: Methylprednisolone Sodium Succinate (Solu-Medrol -) 60 mg IVPUSH Q8H-IV [facility] Last Admin: 07/21/20 18:14 Dose: 60 mg Documented by: Nicotine Polacrilex (Nicorette Gum -) 2 mg BUC Q2H PRN PRN Reason: NICOTINE REPLACEMENT RX Last Admin: 07/21/20 18:14 Dose: 2 mg Documented by: Non-Formulary Medication (Vortioxetine Hydrobromide [Trintellix]) 20 mg PO DAILY [facility] Pantoprazole Sodium (Protonix -) 40 mg PO ACBK [facility] Last Admin: 07/21/20 06:06 Dose: 40 mg Documented by: Quetiapine Fumarate (Seroquel -) 50 mg PO BID [facility] Last Admin: 07/21/20 10:42 Dose: 50 mg Documented by: Venlafaxine HCl (Effexor -) 100 mg PO BID [facility] Last Admin: 07/21/20 10:43 Dose: 100 mg Documented by: Constitutional: Yes: No Distress Eyes: Yes: Conjunctiva Clear, EOM Intact HENT: Yes: Atraumatic, Normocephalic Neck: Yes: Supple, Trachea Midline Cardiovascular: Yes: Regular Rate and Rhythm Respiratory: Yes: Wheezes ...Clubbing: No Gastrointestinal: Yes: Normal Bowel Sounds, Soft. No: Tenderness Edema: No Neurological: Yes: Alert, Oriented Labs: Laboratory Results - last 24 hr 07/19/20 07/21/20 07/21/20 22:48 07:00 07:00 WBC RBC Hgb Hct MCV MCH MCHC RDW Plt Count MPV Absolute Neuts (auto) Neutrophils % Lymphocytes % Monocytes % Eosinophils % Basophils % Nucleated RBC % D-Dimer Sodium Potassium Chloride Carbon Dioxide Anion Gap BUN Creatinine Est GFR (CKD-EPI)AfAm Est GFR (CKD-EPI)NonAf Random Glucose Calcium Phosphorus Magnesium Ferritin Total Bilirubin AST ALT Alkaline Phosphatase LD Total C-Reactive Protein Total Protein Albumin Urine Color Yellow Urine Appearance Turbid Urine pH 5.0 Ur Specific [place] 1.029 Urine Protein Trace Urine Glucose (UA) Negative Urine Ketones Negative Urine Blood Negative Urine Nitrite Negative Urine Bilirubin Negative Urine Urobilinogen 0.2 Ur Leukocyte Esterase Negative Opiates Screen Negative Methadone Screen Negative Barbiturate Screen Negative Phencyclidine Screen Negative Ur Amphetamines Screen Negative MDMA (Ecstasy) Screen Negative Benzodiazepines Screen Negative Cocaine Screen Negative U Marijuana (THC) Screen Negative COVID-19 (ACE) Not detected 07/21/20 07/21/20 07/21/20 07:45 07:45 07:45 WBC 11.6 H RBC 4.83 Hgb 14.1 Hct 42.7 MCV 88.4 MCH 29.3 MCHC 33.1 RDW 14.3 Plt Count 238 MPV 8.0 Absolute Neuts (auto) 10.3 H Neutrophils % 88.4 H D Lymphocytes % 9.5 D Monocytes % 1.9 L D Eosinophils % 0.1 D Basophils % 0.1 Nucleated RBC % 0 D-Dimer < 215 Sodium 139 Potassium 4.4 Chloride 106 Carbon Dioxide 27 Anion Gap 5 L BUN 22.0 H Creatinine 0.6 Est GFR (CKD-EPI)AfAm 140.73 Est GFR (CKD-EPI)NonAf 121.43 Random Glucose 138 H Calcium 9.2 Phosphorus 3.3 Magnesium 2.5 H Ferritin 75.7 Total Bilirubin 0.3 AST 10 L ALT 31 Alkaline Phosphatase 86 LD Total 155 C-Reactive Protein 1.4 H Total Protein 6.7 Albumin 3.4 Urine Color Urine Appearance Urine pH Ur Specific [place] Urine Protein Urine Glucose (UA) Urine Ketones Urine Blood Urine Nitrite Urine Bilirubin Urine Urobilinogen Ur Leukocyte Esterase Opiates Screen Methadone Screen Barbiturate Screen Phencyclidine Screen Ur Amphetamines Screen MDMA (Ecstasy) Screen Benzodiazepines Screen Cocaine Screen U Marijuana (THC) Screen COVID-19 (ACE) Imaging - Results Chest X-ray: Report Reviewed, Image Reviewed Cat Scan: Report Reviewed, Image Reviewed (RML nodule) Assessment/Plan Acute COPD Exacerbation: resolving Smoker Anxiety/Depression Morbid Obesity 7mm RML nodule No CTA evidence of PE (Poor study quality but clinically do not suspect) Likely OSAS - Prednisone taper - inhaled bronchodilators - smoking cessation - outpt f/u of lung nodule - DVT prophylaxis - Will need OSAS workup - Should have some consideration for DOAC use - DC planning Dr Elmore
[2020-07-21] MEDS: ALBUTEROL SO4 2.5/IPRATROPIUM 0.5 INH SOL 3 ML VIAL.NEB. NEB SCH (20:35)
[2020-07-21] MEDS: ATORVASTATIN CA 20 MG TABLET (FP) PO SCH (21:19)
[2020-07-22] MEDS: methylPREDNISolone NA SUCC 40 MG/1 ML VIAL IVPUSH SCH ×2 (02:00→10:17)
[2020-07-22] MEDS ORDERED: PT OWN MED DRAWER 7, Y5N ONE ×2 (03:46→10:15)
[2020-07-22] MEDS: NICOTINE POLACRILEX 2 MG GUM BUC PRN ×2 (03:54→06:07)
[2020-07-22] MEDS: PANTOPRAZOLE 40 MG TABLET PO SCH (06:06)
[2020-07-22] MEDS: ALBUTEROL SO4 2.5/IPRATROPIUM 0.5 INH SOL 3 ML VIAL.NEB. NEB SCH ×5 (07:20→20:20)
--- NOTE | 2020-07-22 07:24 | PN ---
Progress Note, Physician History of Present Illness: PULMONARY ALERT ,FEELING BETTER,-SOB - Current Medication List Current Medications: Active Medications Albuterol Sulfate (Ventolin Hfa Inhaler -) 2 puff IH Q4H PRN PRN Reason: SHORT OF BREATH/WHEEZING Albuterol/Ipratropium (Duoneb -) 1 amp NEB RQID [facility] Last Admin: 07/21/20 20:35 Dose: 1 amp Documented by: Ascorbic Acid (Vitamin C -) 500 mg PO BID [facility] Last Admin: 07/21/20 21:19 Dose: 500 mg Documented by: Atorvastatin Calcium (Lipitor -) 20 mg PO HS [facility] Last Admin: 07/21/20 21:19 Dose: 20 mg Documented by: Cholecalciferol (Vitamin D3 -) 400 unit PO DAILY [facility] Last Admin: 07/21/20 10:42 Dose: 400 unit Documented by: Doxycycline Hyclate (Vibramycin -) 100 mg PO BID@1000,1800 [facility] Last Admin: 07/21/20 18:14 Dose: 100 mg Documented by: Enoxaparin Sodium (Lovenox -) 40 mg SQ DAILY [facility] Last Admin: 07/21/20 10:42 Dose: 40 mg Documented by: Famotidine (Pepcid -) 20 mg PO BID [facility] Last Admin: 07/21/20 21:19 Dose: 20 mg Documented by: Methylprednisolone Sodium Succinate (Solu-Medrol -) 60 mg IVPUSH Q8H-IV [facility] Last Admin: 07/22/20 02:00 Dose: 60 mg Documented by: Nicotine Polacrilex (Nicorette Gum -) 2 mg BUC Q2H PRN PRN Reason: NICOTINE REPLACEMENT RX Last Admin: 07/22/20 06:07 Dose: 2 mg Documented by: Non-Formulary Medication (Vortioxetine Hydrobromide [Trintellix]) 20 mg PO DAILY [facility] Pantoprazole Sodium (Protonix -) 40 mg PO ACBK [facility] Last Admin: 07/22/20 06:06 Dose: 40 mg Documented by: Quetiapine Fumarate (Seroquel -) 50 mg PO BID [facility] Last Admin: 07/21/20 21:19 Dose: 50 mg Documented by: Venlafaxine HCl (Effexor -) 100 mg PO BID [facility] Last Admin: 07/21/20 21:18 Dose: 100 mg Documented by: - Objective Vital Signs: Vital Signs Temperature 97.8 F 07/22/20 05:51 Pulse Rate 84 07/22/20 05:51 Respiratory Rate 20 07/22/20 05:51 Blood Pressure 125/78 07/22/20 05:51 O2 Sat by Pulse Oximetry (%) 96 07/22/20 05:51 Constitutional: Yes: Calm, Obese Eyes: Yes: WNL HENT: Yes: WNL Neck: Yes: WNL Cardiovascular: Yes: Regular Rate and Rhythm, S1, S2 Respiratory: Yes: CTA Bilaterally Gastrointestinal: Yes: Normal Bowel Sounds, Soft Extremities: Yes: WNL Edema: Yes Labs: CBC, BMP Assessment/Plan Assessment/Plan Acute COPD Exacerbation: resolving Smoker Anxiety/Depression Morbid Obesity 7mm RML nodule No CTA evidence of PE (Poor study quality but clinically do not suspect) Likely OSAS - Prednisone taper - inhaled bronchodilators - smoking cessation - outpt f/u of lung nodule - DVT prophylaxis - Will need OSAS workup - Should have some consideration for DOAC use - f/u chests ct 4 months - DR GANDHI -
[2020-07-22 08:31] LABS: BASO % 0.1 % (0-2.0); HEMATOCRIT 42.7 % (35.4-49); LYMPH % 8.1 % (8-40); MCH 28.9 pg (25.7-33.7); MCHC 32.8 g/dl (32.0-35.9); MEAN CELL VOLUME 88.1 fl (80-96); MEAN PLT VOLUME 8.1 fl (7.5-11.1); MONO % 3.2 % (3.8-10.2); NEUT % 88.6 % (42.8-82.8); PLATELET COUNT 251 K/MM3 (134-434); RBC 4.85 M/mm3 (4.00-5.60); RDW 14.3 % (11.9-15.9); WHITE BLOOD COUNT 13.3 K/mm3 (4.0-10.0)
[2020-07-22 09:02] LABS: ALBUMIN 3.4 g/dl (3.4-5.0); BILIRUBIN,TOTAL 0.4 mg/dL (0.2-1); BLOOD UREA NITROGEN 23.7 mg/dL (7-18); CALCIUM 9.2 mg/dL (8.5-10.1); CREATININE 0.7 mg/dL (0.55-1.3); MAGNESIUM 2.5 mg/dL (1.8-2.4); PHOSPHOROUS 4.1 mg/dL (2.5-4.9); POTASSIUM 4.1 mmol/L (3.5-5.1); TOT PROT 6.8 g/dl (6.4-8.2)
[2020-07-22] MEDS: ASCORBIC ACID 500 MG TABLET (FP) PO SCH (10:17)
[2020-07-22] MEDS: FAMOTIDINE 20 MG TABLET PO SCH (10:17)
[2020-07-22] MEDS: VENLAFAXINE HCL 25 MG TABLET PO SCH (10:17)
[2020-07-22] MEDS: DOXYCYCLINE HYCLATE 100 MG CAPSULE PO SCH ×2 (10:17→19:26)
[2020-07-22] MEDS: ENOXAPARIN NA (PORCINE) 40 MG/0.4 ML DISP.SYRIN SQ SCH (10:17)
[2020-07-22] MEDS: QUEtiapine FUMARATE 50 MG TABLET PO SCH (10:17)
[2020-07-22] MEDS: CHOLECALCIFEROL (VIT D3) 400 UNIT (10 MCG) TABLET PO SCH (10:18)
--- NOTE | 2020-07-22 10:36 | PN ---
Progress Note, Physician History of Present Illness: Dyspnea, cough, wheezing resolving to baseline. Ready to go home. - Current Medication List Current Medications: Active Medications Albuterol Sulfate (Ventolin Hfa Inhaler -) 2 puff IH Q4H PRN PRN Reason: SHORT OF BREATH/WHEEZING Albuterol/Ipratropium (Duoneb -) 1 amp NEB RQID [facility] Last Admin: 07/22/20 07:47 Dose: Not Given Documented by: Ascorbic Acid (Vitamin C -) 500 mg PO BID [facility] Last Admin: 07/22/20 10:17 Dose: 500 mg Documented by: Atorvastatin Calcium (Lipitor -) 20 mg PO HS [facility] Last Admin: 07/21/20 21:19 Dose: 20 mg Documented by: Cholecalciferol (Vitamin D3 -) 400 unit PO DAILY [facility] Last Admin: 07/22/20 10:18 Dose: 400 unit Documented by: Doxycycline Hyclate (Vibramycin -) 100 mg PO BID@1000,1800 [facility] Last Admin: 07/22/20 10:17 Dose: 100 mg Documented by: Enoxaparin Sodium (Lovenox -) 40 mg SQ DAILY [facility] Last Admin: 07/22/20 10:17 Dose: 40 mg Documented by: Famotidine (Pepcid -) 20 mg PO BID [facility] Last Admin: 07/22/20 10:17 Dose: 20 mg Documented by: Methylprednisolone Sodium Succinate (Solu-Medrol -) 60 mg IVPUSH Q8H-IV [facility] Last Admin: 07/22/20 10:17 Dose: 60 mg Documented by: Nicotine Polacrilex (Nicorette Gum -) 2 mg BUC Q2H PRN PRN Reason: NICOTINE REPLACEMENT RX Last Admin: 07/22/20 06:07 Dose: 2 mg Documented by: Non-Formulary Medication (Vortioxetine Hydrobromide [Trintellix]) 20 mg PO DAILY [facility] Pantoprazole Sodium (Protonix -) 40 mg PO ACBK [facility] Last Admin: 07/22/20 06:06 Dose: 40 mg Documented by: Quetiapine Fumarate (Seroquel -) 50 mg PO BID [facility] Last Admin: 07/22/20 10:17 Dose: 50 mg Documented by: Venlafaxine HCl (Effexor -) 100 mg PO BID [facility] Last Admin: 07/22/20 10:17 Dose: 100 mg Documented by: - Objective Vital Signs: Vital Signs Temperature 97.8 F 07/22/20 05:51 Pulse Rate 84 07/22/20 05:51 Respiratory Rate 20 07/22/20 05:51 Blood Pressure 125/78 07/22/20 05:51 O2 Sat by Pulse Oximetry (%) 96 07/22/20 05:51 Constitutional: Yes: No Distress, Calm Neck: Yes: Supple Cardiovascular: Yes: Regular Rate and Rhythm Respiratory: Yes: Regular, CTA Bilaterally Gastrointestinal: Yes: Normal Bowel Sounds, Soft, Abdomen, Obese Edema: No Labs: CBC, BMP 07/22/20 07:50 07/22/20 07:50 INR, PTT INR 1.00 (0.83-1.09) 07/19/20 20:22 Problem List - Problems (1) Acute exacerbation of chronic obstructive pulmonary disease (COPD) Code(s): J44.1 - CHRONIC OBSTRUCTIVE PULMONARY DISEASE W (ACUTE) EXACERBATION Assessment/Plan Problem List - Problems (1) Anxiety Code(s): F41.9 - ANXIETY DISORDER, UNSPECIFIED (2) Chest pain Code(s): R07.9 - CHEST PAIN, UNSPECIFIED Qualifiers: Chest pain type: unspecified Qualified Code(s): R07.9 - Chest pain, unspecified (3) Depression Code(s): F32.9 - MAJOR DEPRESSIVE DISORDER, SINGLE EPISODE, UNSPECIFIED (4) SOB (shortness of breath) Code(s): R06.02 - SHORTNESS OF BREATH (5) Hypercholesterolemia Code(s): E78.00 - PURE HYPERCHOLESTEROLEMIA, UNSPECIFIED Assessment/Plan 1. Acute COPD exacerbation with long history of smoking resolving 2. Pulmonary nodule 3. Anxiety and depression 4. Hypercholesterolemia 5. OSAS suspect PLAN: 1. Change to oral steroid taper with GI protection, bronchodilator as needed, complete empiric antibiotic coverage 2. Consider echocardiography to assess LV/RV and valvular function as outpatient 3. Atorvastatin 20 mg QHS 4. Smoking cessation and OSAS workup as outpatient
--- NOTE | 2020-07-22 13:17 | PN ---
Teaching Attending Note Name of Resident: Lj Vela ATTENDING PHYSICIAN STATEMENT I saw and evaluated the patient. I reviewed the resident's note and discussed the case with the resident. I agree with the resident's findings and plan as documented. SUBJECTIVE: No complaints. OBJECTIVE: Vital Signs Period Temp Pulse Resp BP Sys/Goldstein Pulse Ox Last 24 Hr 97.8 F-97.9 F 84-107 20-20 114-125/63-78 93-96 HEART: S1S2, RRR LUNGS: Clear ABDOMEN: Obese, soft, non-tender, non-distended, normal BS EXTREMITIES: No edema Laboratory Results - last 24 hr 07/22/20 07/22/20 07:50 07:50 WBC 13.3 H RBC 4.85 Hgb 14.0 Hct 42.7 MCV 88.1 MCH 28.9 MCHC 32.8 RDW 14.3 Plt Count 251 MPV 8.1 Absolute Neuts (auto) 11.8 H Neutrophils % 88.6 H Lymphocytes % 8.1 Monocytes % 3.2 L Eosinophils % 0.0 D Basophils % 0.1 Nucleated RBC % 0 Sodium 140 Potassium 4.1 Chloride 107 Carbon Dioxide 29 Anion Gap 4 L BUN 23.7 H Creatinine 0.7 Est GFR (CKD-EPI)AfAm 132.09 Est GFR (CKD-EPI)NonAf 113.97 Random Glucose 134 H Calcium 9.2 Phosphorus 4.1 Magnesium 2.5 H Total Bilirubin 0.4 AST 9 L ALT 31 Alkaline Phosphatase 79 Total Protein 6.8 Albumin 3.4 Current Medications Generic Name Dose Route Start Last Admin Trade Name Freq PRN Reason Stop Dose Admin Albuterol Sulfate 2 puff 07/20/20 20:33 Ventolin Hfa Inhaler - IH Q4H PRN SHORT OF BREATH/WHEEZING Albuterol/Ipratropium 1 amp 07/21/20 16:00 07/22/20 11:17 Duoneb - NEB 1 amp RQID ANNA Administration Ascorbic Acid 500 mg 07/20/20 22:00 07/22/20 10:17 Vitamin C - PO 500 mg BID ANNA Administration Atorvastatin Calcium 20 mg 07/20/20 22:00 07/21/20 21:19 Lipitor - PO 20 mg HS ANNA Administration Cholecalciferol 400 unit 07/21/20 10:00 07/22/20 10:18 Vitamin D3 - PO 400 unit DAILY [facility] Administration Doxycycline Hyclate 100 mg 07/21/20 18:00 07/22/20 10:17 Vibramycin - PO 100 mg BID@1000,1800 [facility] Administration Enoxaparin Sodium 40 mg 07/21/20 10:00 07/22/20 10:17 Lovenox - SQ 40 mg DAILY [facility] Administration Famotidine 20 mg 07/20/20 22:00 07/22/20 10:17 Pepcid - PO 20 mg BID [facility] Administration Nicotine Polacrilex 2 mg 07/21/20 16:06 07/22/20 06:07 Nicorette Gum - BUC 2 mg Q2H PRN Administration NICOTINE REPLACEMENT RX Non-Formulary Medication 20 mg 07/20/20 17:15 Vortioxetine Hydrobromide [Trintellix] PO DAILY [facility] Pantoprazole Sodium 40 mg 07/21/20 07:00 07/22/20 06:06 Protonix - PO 40 mg ACBK [facility] Administration Prednisone 40 mg 07/23/20 10:00 Deltasone - PO DAILY [facility] Quetiapine Fumarate 50 mg 07/20/20 22:00 07/22/20 10:17 Seroquel - PO 50 mg BID [facility] Administration Venlafaxine HCl 100 mg 07/20/20 23:00 07/22/20 10:17 Effexor - PO 100 mg BID [facility] Administration ASSESSMENT AND PLAN: This is a 45 year old man with a history of depression/anxiety, suspected COVID- 19, morbid obesity who presented to the ED with chest pain and shortness of breath. 1. Acute exacerbation of COPD - Ok for discharge home on Prednisone taper, DuoNeb as needed 2. Nicotine dependence - Smoking cessation discussed 3. Morbid obesity with BMI 47.9
[2020-07-22 15:42] VITALS: BP 127/67; PULSE 96; TEMP 98.2
--- NOTE | 2020-07-22 15:57 | DS ---
Physical Exam: SUBJECTIVE:Patient seen and examined at bedside, reports he feels better and ready to go home. No acute events overnight, no new complaints OBJECTIVE: Vital Signs Period Temp Pulse Resp BP Sys/Goldstein Pulse Ox Last 24 Hr 97.8 F-98.2 F 84-107 20-20 114-127/63-78 92-96 PHYSICAL EXAM GENERAL: AAOx3, in no acute distress HEENT: NCAT, PERRLA, EOMI, sclera anicteric, conjunctiva clear, oropharynx clear w/o exudates. MMM. NECK: Normal ROM, supple, no lymphadenopathy, JVD, or masses LUNGS: CTABL No wheez/rhonchi/ rales. No distress, speaks in full sentences. No increased work of breathing. HEART: RRR, normal S1 S2, no M/R/G, peripheral pulses 2+ and equal b/l ABDOMEN: Soft, distended, obese body habitus, non TTP, + BS. No guarding or rebound. MSK: ROM WNL, NO CVA tenderness EXTREMITIES: Normal inspection. No peripheral edema. No clubbing or cyanosis. NEUROLOGICAL: CN II-XII intact. Normal speech, gait not observed, no focal sensorimotor deficits. PSYCH: Normal mood, normal affect. SKIN: Warm, Dry, normal turgor, no rashes or lesions noted LABS Laboratory Results - last 24 hr 07/22/20 07/22/20 07:50 07:50 WBC 13.3 H RBC 4.85 Hgb 14.0 Hct 42.7 MCV 88.1 MCH 28.9 MCHC 32.8 RDW 14.3 Plt Count 251 MPV 8.1 Absolute Neuts (auto) 11.8 H Neutrophils % 88.6 H Lymphocytes % 8.1 Monocytes % 3.2 L Eosinophils % 0.0 D Basophils % 0.1 Nucleated RBC % 0 Sodium 140 Potassium 4.1 Chloride 107 Carbon Dioxide 29 Anion Gap 4 L BUN 23.7 H Creatinine 0.7 Est GFR (CKD-EPI)AfAm 132.09 Est GFR (CKD-EPI)NonAf 113.97 Random Glucose 134 H Calcium 9.2 Phosphorus 4.1 Magnesium 2.5 H Total Bilirubin 0.4 AST 9 L ALT 31 Alkaline Phosphatase 79 Total Protein 6.8 Albumin 3.4 HOSPITAL COURSE: Date of Admission:07/19/20 Mr. Rdz is a 45 Y Turkmen speaking male with PMH of depression, anxiety Covid + in january (self reported) presents with 2 days of L sided chest pain + epigastric pain and shortness of breath admitted for COPD exacerbation vs r/o Covid. CTA chest revealed No PE, R lobe nonespecific 7mm Mass. Trop x 2 negative, EKG: NSR, no ST/T wave changes. Admitted to telemetry- No acute events overnight, NSR Cardiology, Dr. Moreno, was consulted, who recommended echocardiography to assess LV/RV and valvular function. provided instructions and referrals for out pt cardiology f/u ID, Dr. Martínez, consulted, started Doxy 100mg IVPB BID, treated for 2 days inpatient and d/c'd home with oral doxy for 5 more days. Pulmonary, Dr. Zeng, was consulted, started IV medrol 60mg Q8H-IV, treated for 2 days inpatient and d/c'd home with a prednisone taper. provided instructions for outpt f/u of lung nodule, found on CTA chest. COVID PCR was negative and he was tolerating room air: O2 Sat @ 96% on RA. LIPID PANEL: Trig 250, Cholesterol 230, LDL 146, HDL 44, HbA1c: 6.0. Calculated ASCVD risk: 7.6%. Started Lipitor 20mg and d/c'd home with a 30 day supply. Patient is medically stable for discharge at this time and he is discharged with the following instructions, referrals and prescriptions Date of Discharge: 07/22/20 Minutes to complete discharge: 36 Discharge Summary Problems reviewed: Yes Reason For Visit: SHORTNESS OF BREATH, CHEST PAIN Current Active Problems Acute exacerbation of chronic obstructive pulmonary disease (COPD) (Acute) Hypercholesterolemia (Acute) Anxiety (Chronic) Cigarette smoker (Chronic) Depression (Chronic) Morbid obesity (Chronic) Condition: Improved - Instructions Diet, Activity, Other Instructions: YOUR VISIT You came to the hospital because you were experiencing shortness of breath and chest pain. You were admitted to the hospital for care of these symptoms. You were assessed by a lung specialist and were treated with steroids. You are now stable and may return home. Your shortness of breath/difficulty breathing could be most likely related to a conditions associated with medical terminologist smoking. You will need to follow up with your pulmonary doctor outpatient for further evaluation with additional tests. It is very important that you STOP SMOKING. Please speak with your doctors to help make a plan on the best way for you to achieve this. MEDICATIONS Please continue to take your home medications as prescribed. You have *NEW* medication. Please start taking Atorvastatin 20 mg by mouth every night Please Start taking Protonix 40mg by mouth two times a day for 14 days with the steroid taper Please Start taking Vibramycin 100 mg by mouth two times a day for 5 more days for completion of your antibiotic treatment. Please START taking Prednisone taper. Here are the taper dose instructions: Day #1 07/22, you will take 5 pills. Each are 10mg. Total dose is 50mg Day #2 07/23, you will take 5 pills. Each are 10mg. Total dose is 50mg Day #3 07/24, you will take 5 pills. Each are 10mg. Total dose is 50mg Day #4 07/25, you will take 4 pills. Each are 10mg. Total dose is 40mg Day #5 07/26, you will take 4 pills. Each are 10mg. Total dose is 40mg Day #6 07/27, you will take 4 pills. Each are 10mg. Total dose is 40mg Day #7 07/28, you will take 3 pills. Each are 10mg. Total dose is 30mg Day #8 07/29, you will take 3 pills. Each are 10mg. Total dose is 30mg Day #9 07/30, you will take 3 pills. Each are 10mg. Total dose is 30mg Day #10 07/31, you will take 2 pills. Each are 10mg. Total dose is 20mg Day #11 08/01, you will take 2 pills. Each are 10mg. Total dose is 20mg Day #12 08/02, you will take 2 pills. Each are 10mg. Total dose is 20mg Day #13 08/03, you will take 1 pills. Each are 10mg. Total dose is 10mg Day #14 08/04, you will take 1 pills. Each are 10mg. Total dose is 10mg Day #15 08/05, you will take 1 pills. Each are 10mg. Total dose is 10mg ADDITIONAL CARE Please make an appointment to see your primary care provider in 1 week from today, for hospital course and repeat labs Blood work showed that you have elevated cholesterols. We started you on a new medication, please continue to take the medication and make an appointment with your primary care doctor for repeat blood work and medication adjustment. You should also use this visit to discuss a weight loss plan. If you are unable to get a primary care provider, you may continue your care at the [facility] located at the [facility] ([address] [place] [address]). Please call [phone] for an appointment. If you would like to continue seeing Dr. Vela, please ask for a Monday Morning appointment. Please make an appointment to see your x ray electronics wireman, Dr. Bruce in 1 week from today, for additional outpatient testings to evaluate for shortness of breath. It is very important that you have Pulmonary Function Test performed as well as a Sleep Assessment. Additionally, CT imaging also showed a right lung nodule. You will need to repeat a CT imaging within 3-6 months for evaluation of its growth. You can discuss these findings with your pulmonary care and primary care doctors. Please use this visit to discuss the appropriateness of anticoagulation medications. Please make an appointment to see your Studio Technician Video Operator, Dr. Josh Ruano, in 1 week from today, for further imaging of your heart. You will also need to follow up with your regulatory manager for an additional imaging with ultrasound to further evaluate your heart (echocardiogram). Please make an appointment to see your Psychiatrist, Dr. Yang ([phone]) within 1 week to discuss management of your anxiety and depression. ADDITIONAL INFORMATION It is important to modify diet, lose weight, increase exercise, and continue to take your home medications. - Do NOT smoke or use tobacco - Exercise at least 30-60min of activity daily, try to walk fast to increase your heart rate - Eat healthier diet: Vegetables and fruits Beans or other legumes Lean meats and fish Low-fat or fat-free dairy foods Whole grains Healthy fats, such as olive oil - Maintain a healthy weight - Manage stress. Breathing exercises, meditation, or even wellness apps on your phone can be useful with managing stress. - Get regular health screening: blood pressure, cholesterol level and type 2 diabetes screening If you have a condition such as high cholesterol, high blood pressure or diabetes, your doctor may prescribe medications and recommend lifestyle changes. Make sure to take your medications as your doctor prescribes and follow a healthy-lifestyle plan. Please call 911 or come directly to the emergency department if you experience recurrence of the symptoms that brought you to the hospital, unusual headache, vision change, shortness of breath, chest pain, numbness, tingling, loss of alertness/awareness, loss of function, unusual bleeding or any alarming symptoms. Referrals: Josh Ruano MD [Staff Physician] - 1 Week (echocardiography to assess LV/RV and valvular function ) Son Elmore MD [Staff Physician] - 1 Week (PFT, sleep study, f/u 3 months R. Lobe 7mm mass) Disposition: HOME - Home Medications Comprehensive Discharge Medication List: Ambulatory Orders Quetiapine Fumarate [Seroquel -] 50 mg PO BID 07/20/20 Venlafaxine HCl [Effexor -] 100 mg PO BID 07/20/20 Vortioxetine Hydrobromide [Trintellix] 20 mg PO DAILY 07/20/20 Albuterol 2.5/Ipratropium 0.5 [Duoneb -] 1 amp NEB RQID PRN #120 amp 07/22/20 Atorvastatin Ca [Lipitor] 20 mg PO HS #30 tablet 07/22/20 Doxycycline Hyclate [Vibramycin -] 100 mg PO BID@1000,1800 #10 capsule 07/22/20 Pantoprazole Sodium [Protonix -] 40 mg PO BID #30 tablet.ec 07/22/20 Prednisone See Taper PO DAILY #45 tablet 07/22/20 This patient is new to me today: No Emergency Visit: Yes ED Registration Date: 07/19/20 Care time: The patient presented to the Emergency Department on the above date and was hospitalized for further evaluation of their emergent condition. Critical Care patient: No - Discharge Referral Referred to [facility] Med [facility] No ATTENDING PHYSICIAN STATEMENT I saw and evaluated the patient. I reviewed the resident's note and discussed the case with the resident. I agree with the resident's findings and plan as documented. SUBJECTIVE: OBJECTIVE: ASSESSMENT AND PLAN:
[2020-07-23] MEDS ORDERED: predniSONE 20 MG TABLET (UD) PO SCH (10:00)
== END 2020-07-22 20:46 | disposition home or self-care (01) | DRG 191 ==
LOC: JER 19:01 → JERBED 22:17 → J6S 07-20 09:58
PROVIDERS: ADMIT Internal Medicine; ATTEND Internal Medicine
DX: J44.1 Chronic obstructive pulmonary disease with (acute) exacerbation (principal); Z68.42 Body mass index [BMI] 45.0-49.9, adult; R07.9 Chest pain, unspecified; F41.8 Other specified anxiety disorders; E66.01 Morbid (severe) obesity due to excess calories; F17.210 Nicotine dependence, cigarettes, uncomplicated; E78.00 Pure hypercholesterolemia, unspecified; R91.1 Solitary pulmonary nodule; E78.5 Hyperlipidemia, unspecified; R00.0 Tachycardia, unspecified
CPT/HCPCS: 36415; 71046-TC-FY; 71275-TC; 80053; 80061; 80307; 81003; 82550; 82728; 83036; 83615; 83721; 83735; 83880; 84100; 84484; 85025; 85379; 85610; 85651; 86140; 87040; 87899; 93005; 93010; 94640; 94761; 99285-25; J0131; Q9967; U0003